=== PATIENT | female | born 1990 | race Caucasian/White ===

== ENCOUNTER 2016-11-07 11:56 | Emergency (ER) | payer OTHER ==
[2016-11-07 12:05] VITALS: BMI 34.9
--- NOTE | 2016-11-07 12:20 | PDOC ---
History of Present Illness - General Chief Complaint: Respiratory Stated Complaint: TROUBLE BREATHING Time Seen by Provider: 11/07/16 12:04 History Source: Patient Exam Limitations: No Limitations - History of Present Illness Initial Comments: 11/07/16 12:07 26y F hx of asthma (no intubations), presents with sob. The patients states she has had nasal congestion, cough, chest congestion for approx 6 days, she went to see her PMD who gave her prescription for prednisone and nebs, which she states has helped slightly. Pt endorses fever to 102.5 this morning, took motrin prior to coming in. pt endorses mild chest tightness. The pt denies any leg swelling, hx of pe/dvt, exogenous hormone use. no recent sick contacts no recent travel Past History - Past Medical History Allergies/Adverse Reactions: Allergies Allergy/AdvReac Type Severity Reaction Status Date / Time peanut Allergy Swelling Verified 11/07/16 12:05 Home Medications: Ambulatory Orders Albuterol Sulfate 0.5% [Ventolin 0.5% -] 1 neb IH DAILY 11/07/16 Mometasone/Formoterol [Dulera 100 Mcg/5 Mcg Inhaler] 2 inh IH BID 11/07/16 Asthma: Yes Suicide Attempt (Hx): No - Surgical History Abdominal Surgery: Yes - Immunization History Td Vaccination: Yes TDAP Vaccination: Yes Immunization Up to Date: Yes - Psycho/Social/Smoking Cessation Hx Anxiety: No Suicidal Ideation: No Smoking Status: No Smoking History: Never smoked Years of Tobacco Use: 0 Have you smoked in the past 12 months: No Number of Cigarettes Smoked Daily: 0 Cigars Per Day: 0 Hx Alcohol Use: No Drug/Substance Use Hx: No Substance Use Type: None Hx Substance Use Treatment: No Review of Systems - Review of Systems Able to Perform ROS?: Yes Comments:: 11/07/16 12:21 Constitutional - no reported Fever, Chills, weakness, HEENT: +nasal congestion no reported vision changes, sore throat Respiratory: + cough, sob, no reported hemoptysis Cardiac: no reported chest pain, palpitations, light headedness, leg swelling Abd/GI: no reported abd pain, nausea, vomiting, blood per rectum, melena, diarrhea : no reported dysuria, frequency, discharge Musculskelatal - no reported back pain, joint swelling skin - no reported bruising, erythema, rash neurological: no reported headache, numbness, focal weakness, tingling, ataxia, weakness hematologic: no reported anemia, easy bruising, easy bleeding *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 - Vital Signs Last Vital Signs Temp Pulse Resp BP Pulse Ox 108 H 24 127/93 100 11/07/16 12:01 11/07/16 12:01 11/07/16 12:01 11/07/16 12:01 - 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 Comments: 11/07/16 12:21 GENERAL: The patient is awake, alert, and fully oriented, anxiouis appearing HEAD: Normocephalic, atraumatic. EYES: extraocular movements intact, sclera anicteric, conjunctiva clear. ENT: Normal voice, Moist mucous membranes. posterior pahrynx mildly erythemaodus with whitish exudates NECK: Normal range of motion, supple LUNGS: n osignificant wheezing appreciate d(pt was already started on neb prior to my arrival) HEART: Regular rate and rhythm, normal S1 and S2 without murmur, rub or gallop. ABDOMEN: Soft, nontender, normoactive bowel sounds. No guarding, no rebound. No CVA tenderness EXTREMITIES: Normal range of motion, no edema. No clubbing or cyanosis. No cords, erythema, or tenderness. NEUROLOGICAL: No facial assymetry, Normal speech, PSYCH: Normal mood, normal affect. SKIN: Warm, Dry, normal turgor, ED Treatment Course - LABORATORY CBC & Chemistry Diagram: 11/07/16 12:09 11/07/16 12:09 - RADIOLOGY Radiology Studies Ordered: Category Date Time Status CHEST X-RAY PORTABLE* [RAD] Stat Radiology 11/07/16 12:05 Ordered Medical Decision Making - Medical Decision Making 11/07/16 12:29 suspect URI exsacerating astham no risk for PE will give duonebs will check cxr will swab for flu 11/07/16 15:25 The patient's blood work was reviewed it is notable for mild leukocytosis with a lymphocytic predominance Chest x-ray is negative flu and then rapid strep are negative I suspect that the patient's shortness of breath is secondary to her URI, on exam the patient is ambulating around the department her lungs are clear. We'll have the patient continue her outpatient treatment of her asthma. Supportive management for her URI and pharyngitis Will have the patient follow-up with primary care doctor on Wednesday for further evaluation Return precautions were discussed I discussed the physical exam findings, ancillary test results and final diagnoses with the patient. I answered all of the patient's questions. The patient was satisfied with the care received and felt comfortable with the discharge plan and treatment plan. The patient will call their primary care physician within 24 hours to arrange follow-up and will return to the Emergency Department with any new, persistent or worsening symptoms. *DC/Admit/Observation/Transfer Diagnosis at time of Disposition: Influenza-like symptoms Acute pharyngitis Qualifiers: Pharyngitis/tonsillitis etiology: other specified organisms Qualified Code(s): J02.8 - Acute pharyngitis due to other specified organisms - Discharge Dispostion Disposition: HOME Condition at time of disposition: Improved Admit: No - Referrals Referrals: Krystian Powers [Primary Care Provider] - - Patient Instructions Printed Discharge Instructions: DI for Pharyngitis/Tonsillopharyngitis -- Adult , DI for Common Cold Additional Instructions: Return to the emergency department immediately with ANY new, persistent or worsening symptoms. Please take Tylenol or motrin for any body aches, sore throat, fevers. Make sure he stay well-hydrated to ease her nasal congestion. You MUST call and follow up with your doctor tomorrow for further evaluation of your symptoms. Results were discussed with you. Please make sure your doctor reviews the results of your emergency evaluation.
[2016-11-07 12:32] LABS: MCH 26.2 pg (25.7-33.7); MCHC 32.1 g/dl (32.0-36.0); MEAN CELL VOLUME 81.8 fl (80-96); MEAN PLT VOLUME 7.8 fl (7.5-11.1); PLATELET COUNT 262 K/MM3 (134-434); RDW 15.6 % (11.6-15.6); WHITE BLOOD COUNT 13.1 K/mm3 (4.0-10.0)
[2016-11-07 13:13] LABS: ALBUMIN 3.5 g/dl (3.4-5.0); ANION GAP 10 (8-16); CALCIUM 8.7 mg/dL (8.5-10.1); CO2 28 mmol/L (21-32); CREATININE 0.9 mg/dL (0.55-1.02); GLUCOSE,RANDOM 109 mg/dL (74-106); SGOT/AST 22 U/L (15-37); SGPT/ALT 53 U/L (12-78)
[2016-11-07 13:15] LABS: ALK PHOS 85 U/L (45-117); BILIRUBIN,TOTAL 0.3 mg/dL (0.2-1.0); TOT PROT 7.9 g/dl (6.4-8.2)
[2016-11-07 13:39] VITALS: TEMP 98.6
[2016-11-07] MEDS ORDERED: KETOROLAC TROMETHAMINE 30 MG/1 ML VIAL IVPUSH ONE (14:37)
[2016-11-07] MEDS ORDERED: DEXAMETHASONE SOD PHOSPHATE 10 MG/1 ML VIAL IVPUSH ONE (14:37)
[2016-11-07 14:49] LABS: PLATELET COMMENT2 NO CLOTTING DETECTED; PLATELET ESTIMATE ADEQUATE (NORMAL)
[2016-11-07 17:41] VITALS: BP 138/72; PULSE 89
== END 2016-11-07 17:42 | disposition home or self-care (01) ==
LOC: JER 11:56
PROC: 3E0333Z Introduction of Anti-inflammatory into Peripheral Vein, Percutaneous Approach (ICD-10-PCS; principal; 2016-11-07)
PROC: 3E0333Z Introduction of Anti-inflammatory into Peripheral Vein, Percutaneous Approach (ICD-10-PCS; 2016-11-07)
DX: J11.1 Influenza due to unidentified influenza virus with other respiratory manifestations (principal)
CPT/HCPCS: 36415; 71010-TC; 80053; 85025; 87070; 87430; 87804; 96374; 96375; 99284-25

== ENCOUNTER → 2016-12-18 | Emergency (ER) | payer OTHER ==
[~2016-12-18] MED LIST: ACETAMINOPHEN 325 MG TABLET (FP) PO ONE; ONDANSETRON *ODT* 4 MG TABLET ONE; ONDANSETRON *ODT* 4 MG TABLET SL ONE; PHENAZOPYRIDINE HCL 100 MG TABLET (FP) PO ONE
[2016-12-18 04:56] VITALS: BP 113/78; PULSE 100; TEMP 97.4; BMI 35.2
[2016-12-18 05:23] LABS: URINE APPEARANCE CLOUDY; URINE BILIRUBIN NEGATIVE (NEGATIVE); URINE COLOR YELLOW; URINE GLUCOSE (UA) NEGATIVE (NEGATIVE); URINE KETONE NEGATIVE (NEGATIVE); URINE NITRITE NEGATIVE (NEGATIVE); URINE UROBILINOGEN NEGATIVE E.U./dl (0.2-1.0)
[2016-12-18 05:25] LABS: URINE BLOOD 3+ (NEGATIVE); URINE LEUK ESTERASE 3+ (NEGATIVE); URINE PROTEIN 2+ (NEGATIVE)
[2016-12-18 05:32] LABS: URINE BACTERIA MODERATE /hpf (NONE SEEN); URINE MUCUS FEW; URINE RBC 1767 /hpf (0-3); URINE WBC 679 /hpf (3-5)
--- NOTE | 2016-12-18 05:46 | PDOC ---
History of Present Illness - General Chief Complaint: Urinary Problem Stated Complaint: URINARY PROBLEM Time Seen by Provider: 12/18/16 04:47 - History of Present Illness Initial Comments: 12/18/16 06:08 CHIEF COMPLAINT: urinary tract infection HISTORY OF PRESENT ILLNESS: 26-year-old female with history of asthma presents to ER with dysuria since yesterday. She states that she has urinary frequency, pain on urination and blood in her urine. Patient states she's been drinking a lot of water with no relief. Patient states she has had this before many years ago but it feels similar to her last urinary tract infection. She denies fever, chills, nausea, vomiting, diarrhea. No recent travel or sick contacts. PAST MEDICAL HISTORY: Denies past medical history FAMILY HISTORY: Denies SOCIAL HISTORY:Denies tobacco, alcohol, illicit drug use. SURGICAL HISTORY: 2 C-sections ALLERGIES: Peanut REVIEW OF SYSTEMS General/Constitutional: Denies fever or chills. Denies weakness, weight change. HEENT: Denies change in vision. Denies ear pain or discharge. Denies sore throat. Cardiovascular: Denies chest pain or shortness of breath. Respiratory: Denies cough, wheezing, or hemoptysis. Gastrointestinal: Denies nausea, vomiting, diarrhea or constipation. Denies rectal bleeding. Genitourinary: Dysuria, frequency, blood in urine. Musculoskeletal: Denies joint or muscle swelling or pain. Denies neck or back pain. Skin and breasts: Denies rash or easy bruising. PHYSICAL EXAM General Appearance: Well-appearing, appropriately dressed. No apparent distress , no intoxication. HEENT: EOMI, PERRLA. No conjunctival pallor. No photophobia, scleral icterus. Respiratory/Chest: Lungs CTAB. Cardiovascular: RRR. S1, S2. Gastrointestinal/Abdominal: Normal bowel sounds. Abdomen soft, non-distended. No tenderness or rebound tenderness. No organomegaly, pulsatile mass, guarding , hernia, hepatomegaly, splenomegaly. Musculoskeletal/Extremities: Normal inspection. FROM of all extremities, normal capillary refill. Pelvis Stable. No CVA tenderness. No tenderness to extremities, pedal edema, swelling, erythema or deformity. Integumentary: Appropriate color, dry, warm. 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 Fully oriented, alert. Appropriate mood/affect. Motor strength 5/5. No appreciable EOM palsy, facial droop or sensory deficit. Past History - Past Medical History Allergies/Adverse Reactions: Allergies Allergy/AdvReac Type Severity Reaction Status Date / Time peanut Allergy Swelling Verified 12/18/16 04:54 Home Medications: Ambulatory Orders Albuterol Sulfate 0.5% [Ventolin 0.5% -] 1 neb IH DAILY 11/07/16 Mometasone/Formoterol [Dulera 100 Mcg/5 Mcg Inhaler] 2 inh IH BID 11/07/16 Nitrofurantoin Monohyd/M-Cryst [Macrobid -] 100 mg PO BID #14 capsule 12/18/16 Phenazopyridine HCl [Pyridium] 200 mg PO TID PRN #12 tablet 12/18/16 Asthma: Yes Suicide Attempt (Hx): No - Surgical History Abdominal Surgery: Yes (C/S X2) - Immunization History Td Vaccination: Yes TDAP Vaccination: Yes Immunization Up to Date: Yes - Psycho/Social/Smoking Cessation Hx Anxiety: No Suicidal Ideation: No Smoking Status: No Smoking History: Never smoked Years of Tobacco Use: 0 Have you smoked in the past 12 months: No Number of Cigarettes Smoked Daily: 0 Cigars Per Day: 0 Information on smoking cessation initiated: No Hx Alcohol Use: No Drug/Substance Use Hx: No Substance Use Type: None Hx Substance Use Treatment: No Abd/GI Specific PMHX - Complaint Specific PMHX Colitis: No Diverticulitis: No Gall Bladder Disease: No GERD: No Hepatitis: No Irritable Bowel Synd (IBS): No Pancreatitis: No GI Ulcer Disease: No *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 - Vital Signs Last Vital Signs Temp Pulse Resp BP Pulse Ox 97.4 F L 100 H 14 113/78 98 12/18/16 04:55 12/18/16 04:55 12/18/16 04:55 12/18/16 04:55 12/18/16 04:55 ED Treatment Course - ADDITIONAL ORDERS Additional order review: Laboratory Results 12/18/16 05:01 Urine Color Yellow Urine Appearance Cloudy Urine pH 6.0 Ur Specific [place] 1.020 Urine Protein 2+ H Urine Glucose (UA) Negative Urine Ketones Negative Urine Blood 3+ H Urine Nitrite Negative Urine Bilirubin Negative Urine Urobilinogen Negative Ur Leukocyte Esterase 3+ H Urine RBC 1767 Urine WBC 679 Ur Epithelial Cells Few Urine Bacteria Moderate Urine Mucus Few Urine HCG, Qual Negative - Medications Given in the ED: ED Medications Discontinued Medications Generic Name Dose Route Start Last Admin Trade Name Freq PRN Reason Stop Dose Admin Acetaminophen 650 mg 12/18/16 05:20 12/18/16 05:26 Tylenol - PO 12/18/16 05:21 650 mg ONCE ONE Administration Phenazopyridine HCl 200 mg 12/18/16 05:20 12/18/16 05:26 Pyridium - PO 12/18/16 05:21 200 mg ONCE ONE Administration Medical Decision Making - Medical Decision Making 12/18/16 06:10 26 yo female with history of asthma presents to ED with dysuria, hematuria, urinary frequency. -UA, UCx -Tylenol 650 mg -Pyridium 200 mg UA - WBC 679 Patient vomiting after taking Tylenol but states "I always throw up with I take tablets instead of capsules." 8 mg Zofran ODT given. -Macrobid 100 mg bid x 7 days -Pyridium 200 mg TID prn dysuria Rxs sent to pharm Advised patient to take medication as prescribed and follow up with PMD next week. Advised patient of signs and symptoms for return to ED. Patient verbalized understanding and agrees to plan. *DC/Admit/Observation/Transfer Diagnosis at time of Disposition: UTI (urinary tract infection) Qualifiers: Urinary tract infection type: site unspecified Hematuria presence: without hematuria Qualified Code(s): N39.0 - Urinary tract infection, site not specified - Discharge Dispostion Admit: No - Prescriptions Prescriptions: Nitrofurantoin Monohyd/M-Cryst [Macrobid -] 100 mg PO BID #14 capsule Phenazopyridine HCl [Pyridium] 200 mg PO TID PRN #12 tablet PRN Reason: Pain - Referrals Referrals: Krystian Powers [Primary Care Provider] - - Patient Instructions Printed Discharge Instructions: DI for Urinary Tract Infection (UTI) Additional Instructions: Please take medications as prescribed. Follow up with your primary care doctor next week. If you experience fever, chills, nausea, vomiting, diarrhea, or any new or worsening symptoms, please return to the ER.
== END | disposition home or self-care (01) ==
LOC: JER 04:38
DX: N39.0 Urinary tract infection, site not specified (principal); R31.9 Hematuria, unspecified; B96.89 Other specified bacterial agents as the cause of diseases classified elsewhere
CPT/HCPCS: 81003; 81015; 84703; 87086; 87186; 99282-25

== ENCOUNTER 2017-02-08 22:07 | Emergency (ER) | payer SELFPAY ==
[2017-02-08 22:41] VITALS: BMI 35.7
--- NOTE | 2017-02-08 22:43 | PDOC ---
History of Present Illness - History of Present Illness Initial Comments: 02/09/17 22:10 The patient is a 26 year old female, with a significant past medical history of asthma, who presents to the emergency department via ems for depression and headache this evening after fighting with her mother. The patient states her mother called 911 because she claimed she wanted to kill herself. As per ems, the patients mother reported the patient had a knife to her own throat when she made the statement about wanting to commit suicide during an argument at home. The patient denies ever holding a knife or having suicide plan. She states she was in the middle of an argument with her mother about a situation with their rabbi and told her mother she would just "jump in the river", but the patient states she did not mean she would do it. 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 The patient states her children and her job are her life and she does not feel like she wants to . She denies chest pain, shortness of breath, and dizziness. She denies fever, chills, nausea, vomit, diarrhea and constipation. She denies dysuria, frequency , urgency and hematuria. Allergies: peanuts Past surgical history: x 2 Social history: denies toxic habits PCP - Dr. Krystian Powers <Qi Avalos - Last Filed: 02/09/17 01:36> <Ruba Chavez - Last Filed: 02/09/17 22:06> - General Chief Complaint: Depression Stated Complaint: EDP Time Seen by Provider: 02/08/17 22:08 Past History <Qi Avalos - Last Filed: 02/09/17 01:36> - Past Medical History Asthma: Yes Suicide Attempt (Hx): No - Surgical History Abdominal Surgery: Yes (C/S X2) - Immunization History Td Vaccination: Yes TDAP Vaccination: Yes Immunization Up to Date: Yes - Psycho/Social/Smoking Cessation Hx Anxiety: No Suicidal Ideation: Yes (thoughts with no plan) Smoking Status: No Smoking History: Never smoked Years of Tobacco Use: 0 Have you smoked in the past 12 months: No Number of Cigarettes Smoked Daily: 0 Cigars Per Day: 0 Information on smoking cessation initiated: No Hx Alcohol Use: No Drug/Substance Use Hx: No Substance Use Type: None Hx Substance Use Treatment: No <Ruba Chavez - Last Filed: 02/09/17 22:06> - Past Medical History Allergies/Adverse Reactions: Allergies Allergy/AdvReac Type Severity Reaction Status Date / Time peanut Allergy Swelling Verified 02/08/17 22:55 Home Medications: Ambulatory Orders Albuterol Sulfate 0.5% [Ventolin 0.5% -] 1 neb IH DAILY 11/07/16 Mometasone/Formoterol [Dulera 100 Mcg/5 Mcg Inhaler] 2 inh IH BID 11/07/16 *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 - Vital Signs Last Vital Signs Temp Pulse Resp BP Pulse Ox 98.9 F 92 H 18 117/76 99 02/08/17 22:08 02/08/17 22:08 02/08/17 22:08 02/08/17 22:08 02/08/17 22:33 <Qi Avalos - Last Filed: 02/09/17 01:36> - Vital Signs Last Vital Signs Temp Pulse Resp BP Pulse Ox 98.9 F 92 H 18 117/76 99 02/08/17 22:08 02/08/17 22:08 02/08/17 22:08 02/08/17 22:08 02/08/17 22:08 <Ruba Chaevz - Last Filed: 02/09/17 22:06> ED Treatment Course - LABORATORY CBC & Chemistry Diagram: 02/08/17 23:16 02/08/17 23:23 - ADDITIONAL ORDERS Additional order review: Laboratory Results 02/09/17 02/08/17 00:05 23:23 Sodium 141 Potassium 4.1 Chloride 104 Carbon Dioxide 28 Anion Gap 9 BUN 17 D Creatinine 0.7 D Creat Clearance w eGFR > 60 Random Glucose 91 Calcium 8.6 Total Bilirubin 0.3 AST 16 D ALT 17 D Alkaline Phosphatase 70 Total Protein 6.9 Albumin 3.3 L Urine HCG, Qual Negative 02/08/17 23:16 RBC 4.34 MCV 83.7 MCHC 32.7 RDW 15.2 MPV 7.9 Neutrophils % 49.9 D Lymphocytes % 39.6 D Monocytes % 8.1 D Eosinophils % 1.4 Basophils % 1.0 - Medications Given in the ED: ED Medications Discontinued Medications Generic Name Dose Route Start Last Admin Trade Name Manju PRN Reason Stop Dose Admin Acetaminophen 650 mg 02/09/17 00:26 02/09/17 00:54 Tylenol - PO 02/09/17 00:27 650 mg ONCE ONE Administration <MaureenseraQi westbrook - Last Filed: 02/09/17 01:36> - LABORATORY CBC & Chemistry Diagram: 02/08/17 23:16 02/08/17 23:23 <Ruba Chavez - Last Filed: 02/09/17 22:06> Medical Decision Making - Medical Decision Making 02/08/17 23:53 26 yo female ROSALINDA from home because her mother called and said the pt was threatening to harm herself -the pt states she and her mother have been arguing and she threatened to harm herself but she didnt really mean to hurt herself -she does not have a plan to harm either herself or others.she said she would never do anything that would jeopardize the lives of her children or her bring them up. She had a verbal disagreement with her rabbi about bringing something to the [employer] dinner. She was upset when her mother sided with the rabbi. She had a verbal argument her mother with whom she lives. 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 She has 2 children .she feels her mother is not very supportive of her daily stressors. After the verbal disagreement w her mother during which she told her mother she was really angry at her and she was going to "jump off a bridge" because her mother was driving her crazy - she left her home to go and pickup her 2 children. Upon arriving back at her mother's house,she saw the police and ambulance there. She said she didn't know what was going on . When police approached her car she didn't know what to think so she calmly locker her car door and raised up her hands.. She said the police were very kind and told her they were taking her so "you can get some help" . She was taken aback by the whole situation pt is axox3,no gross focal deficits -plan- cbc,comp,drug screen Negative drug screen,unremarkable labs,negative -no suicidal or homocidal ideology 02/09/17 00:53 02/09/17 18:49 02/09/17 21:59 <Ruba Chavez - Last Filed: 02/09/17 22:06> *DC/Admit/Observation/Transfer <RobbieQi - Last Filed: 02/09/17 01:36> <Ruba Chavez - Last Filed: 02/09/17 22:06> Diagnosis at time of Disposition: Situational anxiety - Discharge Dispostion Disposition: HOME Condition at time of disposition: Stable - Referrals Referrals: Krystian Powers [Primary Care Provider] - - Patient Instructions Printed Discharge Instructions: DI for Anxiety -- Adult, DI for Depression -- Adult Additional Instructions: please follow up with your regular physician [facility] has outpatient treatment for stress and you are encouraged to contact them Return if you ever have any worsening symptoms
[2017-02-09 00:13] LABS: EOSINOPHIL 1.4 % (0-4.5); MCH 27.4 pg (25.7-33.7); MCHC 32.7 g/dl (32.0-36.0); MEAN CELL VOLUME 83.7 fl (80-96); MEAN PLT VOLUME 7.9 fl (7.5-11.1); NEUTROPHILS 49.9 % (42.8-82.8); PLATELET COUNT 284 K/MM3 (134-434); RDW 15.2 % (11.6-15.6); WHITE BLOOD COUNT 6.6 K/mm3 (4.0-10.0)
[2017-02-09] MEDS ORDERED: ACETAMINOPHEN 325 MG TABLET (FP) PO ONE (00:26)
[2017-02-09 00:27] LABS: ALBUMIN 3.3 g/dl (3.4-5.0); ALK PHOS 70 U/L (45-117); ANION GAP 9 (8-16); BILIRUBIN,TOTAL 0.3 mg/dL (0.2-1.0); CALCIUM 8.6 mg/dL (8.5-10.1); CO2 28 mmol/L (21-32); CREATININE 0.7 mg/dL (0.55-1.02); GLUCOSE,RANDOM 91 mg/dL (74-106); SGOT/AST 16 U/L (15-37); SGPT/ALT 17 U/L (12-78); TOT PROT 6.9 g/dl (6.4-8.2)
[2017-02-09 01:36] LABS: URINE MARIJUANA THC NEGATIVE ng/ml (CUTOFF=50)
[2017-02-09 03:45] VITALS: BP 119/78; PULSE 89; TEMP 98.7
== END 2017-02-09 02:02 | disposition home or self-care (01) ==
LOC: JER 22:07
DX: F43.20 Adjustment disorder, unspecified (principal)
CPT/HCPCS: 36415; 80053; 80307; 84703; 85025; 99283-25

== ENCOUNTER 2017-04-05 09:43 | Emergency (ER) | payer OTHER ==
[2017-04-05] MEDS ORDERED: SODIUM CHLORIDE 2,000 ML IV STA (09:59)
[2017-04-05] MEDS ORDERED: ONDANSETRON 4 MG/2 ML VIAL IVPUSH ONE (09:59)
--- NOTE | 2017-04-05 09:59 | PDOC ---
History of Present Illness - General History Source: Patient, Old Records Exam Limitations: No Limitations <Libby Winter - Last Filed: 04/05/17 13:13> - History of Present Illness Initial Comments: 04/05/17 10:52 Patient is a 26 year old female (8 weeks) with no significant medical hx who is presenting to the ED via EMS after a syncopal episode today. Patient states she wasnt feeling well since she woke up early this morning with nausea and vertiginous dizziness. She reports trying to eat some crackers and soda to help her nausea which provided little relief. The patient then began having palpitations and shortness of breath, and reportedly syncopized shortly after. Patient was at work during the event and coworkers called EMS. The patient also endorses some suprapubic pain, lower back pain and frequency with urination. Patient has her first [employer] appointment tomorrow. Denies any fever, chills, chest pain, dysuria, hematuria, vomiting, or diarrhea. LNMP: 02/16/17, <Fanny Otoole - Last Filed: 04/05/17 13:20> - General Chief Complaint: Syncope/Near Syncope Stated Complaint: Syncope/Near Syncope Time Seen by Provider: 04/05/17 09:50 Past History - Past Medical History Asthma: Yes Suicide Attempt (Hx): No - Surgical History Abdominal Surgery: Yes (C/S X2) - Immunization History Td Vaccination: Yes TDAP Vaccination: Yes Immunization Up to Date: Yes - Psycho/Social/Smoking Cessation Hx Anxiety: No Suicidal Ideation: Yes (thoughts with no plan) Smoking Status: No Smoking History: Never smoked Years of Tobacco Use: 0 Have you smoked in the past 12 months: No Number of Cigarettes Smoked Daily: 0 Cigars Per Day: 0 Hx Alcohol Use: No Drug/Substance Use Hx: No Substance Use Type: None Hx Substance Use Treatment: No <Libby Winter - Last Filed: 04/05/17 13:13> <Fanny Otoole - Last Filed: 04/05/17 13:20> - Past Medical History Allergies/Adverse Reactions: Allergies Allergy/AdvReac Type Severity Reaction Status Date / Time peanut Allergy Swelling Verified 04/05/17 10:01 Home Medications: Ambulatory Orders Albuterol Sulfate 0.5% [Ventolin 0.5% -] 1 neb IH DAILY 11/07/16 Mometasone/Formoterol [Dulera 100 Mcg/5 Mcg Inhaler] 2 inh IH BID 11/07/16 Cephalexin [Keflex] 500 mg PO BID #20 capsule 04/05/17 Review of Systems - Review of Systems Comments:: 04/05/17 10:52 GENERAL/CONSTITUTIONAL: No fever or chills. No weakness. HEAD, EYES, EARS, NOSE AND THROAT: No change in vision. No ear pain or discharge. No sore throat. CARDIOVASCULAR: Palpitations, shortness of breath. No chest pain. RESPIRATORY: No cough, wheezing, or hemoptysis. GASTROINTESTINAL: Suprapubic pain, nausea. No vomiting, diarrhea or constipation. GENITOURINARY: Frequency. No dysuria, or change in urination. MUSCULOSKELETAL: Lower back pain. No joint or muscle swelling or pain. No neck pain. ENDOCRINE: No increased thirst. No abnormal weight change. SKIN: No rash NEUROLOGIC: Dizziness, loss of consciousness. No headache or change in strength/ sensation. <Fanny Otoole - Last Filed: 04/05/17 13:20> *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 - Vital Signs Last Vital Signs Temp Pulse Resp BP Pulse Ox 98.8 F 55 L 18 97/81 100 04/05/17 09:55 04/05/17 09:55 04/05/17 09:55 04/05/17 09:55 04/05/17 09:55 - 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 Comments: 04/05/17 10:54 GENERAL: Awake, alert, and fully oriented, in no acute distress HEAD: No signs of trauma EYES: PERRLA, EOMI, sclera anicteric, conjunctiva clear ENT: Auricles normal inspection, hearing grossly normal, nares patent, oropharynx clear without exudates. Moist mucosa NECK: Normal ROM, supple, no lymphadenopathy, JVD, or masses LUNGS: Breath sounds equal, clear to auscultation bilaterally. No wheezes, and no crackles HEART: Regular rate and rhythm, normal S1 and S2, no murmurs, rubs or gallops ABDOMEN: Obese abdomen. Soft, nontender, normoactive bowel sounds. No guarding , no rebound. No masses EXTREMITIES: Normal range of motion, no edema. No clubbing or cyanosis. No cords, erythema, or tenderness NEUROLOGICAL: Cranial nerves II through XII grossly intact. Normal speech, normal gait SKIN: Warm, Dry, normal turgor, no rashes or lesions noted. HEMATOLOGIC/LYMPHATIC: No anemia, easy bleeding, or history of blood clots. ALLERGIC/IMMUNOLOGIC: No hives or skin allergy. <Fanny Otoole - Last Filed: 04/05/17 13:20> ED Treatment Course - LABORATORY CBC & Chemistry Diagram: 04/05/17 10:25 04/05/17 10:25 <Libby Winter - Last Filed: 04/05/17 13:13> - LABORATORY CBC & Chemistry Diagram: 04/05/17 10:25 04/05/17 10:25 - RADIOLOGY Radiograph Interpretation: 04/05/17 13:19 Transvaginal US Impression: Single live intrauterine with estimated gestational age of 8 weeks 5 days. heart activity was documented. Small anterior myometrial fibroid. Small right ovary simple cyst/dominant follicle measuring 1.5 cm. Left ovary seen on the transvesical images. Reported By: Griselda Rivera MD - Medications Given in the ED: ED Medications Discontinued Medications Generic Name Dose Route Start Last Admin Trade Name Freq PRN Reason Stop Dose Admin Ondansetron HCl 4 mg 04/05/17 09:59 04/05/17 10:10 Zofran Injection IVPUSH 04/05/17 10:00 4 mg ONCE ONE Administration <Fanny Otoole - Last Filed: 04/05/17 13:20> Medical Decision Making - Medical Decision Making 04/05/17 10:37 26 y/o female (approx 8 weeks) presents to the ED with c/o nausea, dizziness and a syncopal episode this morning. DDx includes but is not limited to: dehydration, electrolyte abnormality, postural hypotension, vaso-vagal response, ectopic , UTI, cardiac arrhythmia. Plan: 1. EKG 2. Labs 3. Urine analysis 4. Pelvic ultrasound 5. Observe and re-evaluate 04/05/17 13:17 Addendum: The labs were reviewed and are noted in the EMR. Ultrasound shows IUP measuring 8 weeks, 4 days with a FHR of 158. Urine shows +LE. Plan is to discharge home with Rx for Keflex. F/u with OB and return to the ED if Sx persist, worsen or new Sx arise. <Libby Winter - Last Filed: 04/05/17 13:13> *DC/Admit/Observation/Transfer - Discharge Dispostion Admit: No - Attestations Physician Attestion: 04/05/17 10:39 I, Dr. Libby Winter, attest that the scribes documentation that appears above has been prepared under my direction and personally reviewed by me in its entirety. I confirmed that the note above accurately reflects all work, treatment, procedures, and medical decision-making performed by me. <Libby Winter - Last Filed: 04/05/17 13:13> - Attestations Scribe Attestion: 04/05/17 10:55 Documentation prepared by Fanny Otoole, acting as special forces medical sergeant for Libby Winter MD. <Fanny Otoole - Last Filed: 04/05/17 13:20> Diagnosis at time of Disposition: Syncope and collapse, , incidental, UTI (urinary tract infection) - Discharge Dispostion Disposition: HOME - Prescriptions Prescriptions: Cephalexin [Keflex] 500 mg PO BID #20 capsule - Referrals Referrals: Krystian Powers [Primary Care Provider] - - Patient Instructions Printed Discharge Instructions: DI for Syncope in Adults (Fainting) Additional Instructions: You have a urinary tract infection. You are being prescribed Keflex 500mg-one tablet twice daily for the next 10 days. Please follow-up with your educational advisor within the next 3 days and make sure that you keep hydrated (drink lots of water). Return to the ED if your symptoms -persist, worsen or new symptoms arise.
[2017-04-05 10:01] VITALS: BP 97/81; PULSE 55; TEMP 98.8; BMI 36.6
[2017-04-05] MEDS ORDERED: ONDANSETRON 4 MG/2 ML VIAL ONE (10:10)
[2017-04-05 10:45] LABS: BASOPHIL 0.8 % (0-2.0); EOSINOPHIL 0.9 % (0-4.5); MCH 27.1 pg (25.7-33.7); MCHC 32.8 g/dl (32.0-36.0); MEAN CELL VOLUME 82.7 fl (80-96); MEAN PLT VOLUME 7.9 fl (7.5-11.1); NEUTROPHILS 48.6 % (42.8-82.8); PLATELET COUNT 272 K/MM3 (134-434); RDW 14.6 % (11.6-15.6); WHITE BLOOD COUNT 5.6 K/mm3 (4.0-10.0)
[2017-04-05 10:56] LABS: ANION GAP 6 (8-16); BILIRUBIN,TOTAL 0.4 mg/dL (0.2-1.0); CALCIUM 8.3 mg/dL (8.5-10.1); CO2 27 mmol/L (21-32); CREATININE 0.5 mg/dL (0.55-1.02); GLUCOSE,RANDOM 75 mg/dL (74-106); SGOT/AST 16 U/L (15-37); SGPT/ALT 16 U/L (12-78); TOT PROT 6.6 g/dl (6.4-8.2)
[2017-04-05 10:57] LABS: URINE APPEARANCE CLEAR; URINE BILIRUBIN NEGATIVE (NEGATIVE); URINE BLOOD NEGATIVE (NEGATIVE); URINE COLOR STRAW; URINE GLUCOSE (UA) NEGATIVE (NEGATIVE); URINE KETONE NEGATIVE (NEGATIVE); URINE NITRITE NEGATIVE (NEGATIVE); URINE UROBILINOGEN NEGATIVE E.U./dl (0.2-1.0)
[2017-04-05 10:59] LABS: ACETONE SERUM NEGATIVE (NEGATIVE); URINE LEUK ESTERASE TRACE (NEGATIVE); URINE PROTEIN 1+ (NEGATIVE)
[2017-04-05 11:01] LABS: URINE MUCUS RARE; URINE RBC <1 /hpf (0-3); URINE WBC 1 /hpf (3-5)
[2017-04-05 11:12] LABS: ALK PHOS 48 U/L (45-117); TROPONIN I < 0.02 ng/ml (0.00-0.05)
[2017-04-05] MEDS ORDERED: CEPHALEXIN MONOHYDRATE 500 MG CAPSULE (UD) PO ONE (12:48)
[2017-04-05] MEDS ORDERED: CEPHALEXIN MONOHYDRATE 250 MG CAPSULE (FP) ONE (14:03)
--- NOTE | 2017-04-06 10:53 | EKG ---
Test Reason : Blood Pressure : / mmHG Vent. Rate : 076 BPM Atrial Rate : 076 BPM P-R Int : 154 ms QRS Dur : 082 ms QT Int : 398 ms P-R-T Axes : 048 035 023 degrees QTc Int : 447 ms NORMAL SINUS RHYTHM NORMAL ECG WHEN COMPARED WITH ECG OF 15-NOV-2015 18:14, NO SIGNIFICANT CHANGE WAS FOUND Confirmed by DARRELL BEST MD ([id number]) on 04/06/2017 10:53:03 AM Referred By: Confirmed By:DARRELL BEST MD
== END 2017-04-05 14:24 | disposition home or self-care (01) ==
LOC: JER 09:43
PROC: 3E0337Z Introduction of Electrolytic and Water Balance Substance into Peripheral Vein, Percutaneous Approach (ICD-10-PCS; principal; 2017-04-05)
DX: O26.891 Other specified pregnancy related conditions, first trimester (principal); R55 Syncope and collapse; N39.0 Urinary tract infection, site not specified; Z3A.08 8 weeks gestation of pregnancy; J45.909 Unspecified asthma, uncomplicated
CPT/HCPCS: 36415; 76817-TC; 80053; 81003; 81015; 82009; 82550; 83690; 84484; 84702; 85025; 87086; 93005; 93010; 96360; 99283-25

== ENCOUNTER 2017-06-26 22:43 | Emergency (ER) | payer OTHER ==
[2017-06-26 22:52] VITALS: PULSE 84; BMI 36.8
--- NOTE | 2017-06-26 23:05 | PDOC ---
History of Present Illness - General Chief Complaint: Urinary Problem Stated Complaint: 20 WEEKS PREG - PAINFUL UNINATION Time Seen by Provider: 06/26/17 22:51 - History of Present Illness Initial Comments: 06/26/17 23:33 Ms. Grant is a 26 year old female with a significant past medical history of previous visit for uti for which she did not fill her prescription who presents to the emergency department with continued pain on urination and significant itching. Past History - Past Medical History Allergies/Adverse Reactions: Allergies Allergy/AdvReac Type Severity Reaction Status Date / Time peanut Allergy Swelling Verified 06/26/17 22:52 Home Medications: Ambulatory Orders Albuterol Sulfate 0.5% [Ventolin 0.5% -] 1 neb IH DAILY 11/07/16 Nitrofurantoin Monohyd/M-Cryst [Macrobid -] 100 mg PO BID #20 capsule 06/26/17 Asthma: Yes Suicide Attempt (Hx): No - Surgical History Abdominal Surgery: Yes (C/S X2) - Immunization History Td Vaccination: Yes TDAP Vaccination: Yes Immunization Up to Date: Yes - Psycho/Social/Smoking Cessation Hx Anxiety: No Suicidal Ideation: Yes (thoughts with no plan) Smoking Status: No Smoking History: Never smoked Years of Tobacco Use: 0 Have you smoked in the past 12 months: No Number of Cigarettes Smoked Daily: 0 Cigars Per Day: 0 Hx Alcohol Use: No Drug/Substance Use Hx: No Substance Use Type: None Hx Substance Use Treatment: No Review of Systems - Review of Systems Comments:: 06/26/17 23:44 GENERAL/CONSTITUTIONAL: No fever or chills. No weakness. HEAD, EYES, EARS, NOSE AND THROAT: No change in vision. No ear pain or discharge. No sore throat. CARDIOVASCULAR: No chest pain or shortness of breath RESPIRATORY: No cough, wheezing, or hemoptysis. GASTROINTESTINAL: No nausea, vomiting, diarrhea or constipation. GENITOURINARY: No dysuria, frequency, or change in urination. MUSCULOSKELETAL: No joint or muscle swelling or pain. No neck or back pain. SKIN: No rash NEUROLOGIC: No headache, vertigo, loss of consciousness, or change in strength/ sensation. ENDOCRINE: No increased thirst. No abnormal weight change HEMATOLOGIC/LYMPHATIC: No anemia, easy bleeding, or history of blood clots. ALLERGIC/IMMUNOLOGIC: No hives or skin allergy. *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 - 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 Comments: 06/26/17 23:44 GENERAL: Awake, alert, and fully oriented, in no acute distress HEAD: No signs of trauma, normocephalic, atraumatic EYES: PERRLA, EOMI, sclera anicteric, conjunctiva clear ENT: Auricles normal inspection, hearing grossly normal, nares patent, oropharynx clear without exudates. Moist mucosa NECK: Normal ROM, supple, no lymphadenopathy, JVD, or masses LUNGS: No distress, speaks full sentences, clear to auscultation bilaterally HEART: Regular rate and rhythm, normal S1 and S2, no murmurs, rubs or gallops, peripheral pulses normal and equal bilaterally. ABDOMEN: Soft, nontender, normoactive bowel sounds. No guarding, no rebound. No masses EXTREMITIES: Normal inspection, Normal range of motion, no edema. No clubbing or cyanosis. NEUROLOGICAL: Cranial nerves II through XII grossly intact. Normal speech, normal gait, no focal sensorimotor deficits SKIN: Warm, Dry, normal turgor, no rashes or lesions noted. Medical Decision Making - Medical Decision Making 06/26/17 23:44 Patient re-presented for UTI evaluation in addition to intense itching. UTI confirmed via UA with 3+ Leukocyte Esterase. Prescription for macrobi sent to patient's pharmacy, patient transferred to OB for further evaluation. *DC/Admit/Observation/Transfer Diagnosis at time of Disposition: UTI (urinary tract infection) Qualifiers: Urinary tract infection type: site unspecified Hematuria presence: with hematuria Qualified Code(s): N39.0 - Urinary tract infection, site not specified ; R31.9 - Hematuria, unspecified
[2017-06-26 23:28] LABS: URINE APPEARANCE CLEAR; URINE BILIRUBIN NEGATIVE (NEGATIVE); URINE BLOOD NEGATIVE (NEGATIVE); URINE COLOR LTYELLOW; URINE GLUCOSE (UA) NEGATIVE (NEGATIVE); URINE KETONE NEGATIVE (NEGATIVE); URINE NITRITE NEGATIVE (NEGATIVE); URINE UROBILINOGEN NEGATIVE mg/dL (0.2-1.0)
[2017-06-26 23:32] LABS: URINE LEUK ESTERASE 3+ (NEGATIVE); URINE PROTEIN 2+ (NEGATIVE)
[2017-06-26 23:37] LABS: URINE RBC 2 /hpf (0-3); URINE WBC 2 /hpf (3-5)
--- NOTE | 2017-06-26 23:40 | PDOC ---
Attending Attestation - Resident Resident Name: Eric Resendiz - HPI HPI: 06/26/17 23:35 pt presents to the ED complaining of vaginal itching and dysuria. Denies nausea , vomiting or fever. Complains of abdominal pressure but denies abdominal pain or vaginal bleeding. 20 weeks by dates. - Physicial Exam PE: 06/26/17 23:37 Agree with resident's exam. Patient is well appearing and in no acute distress. - Medical Decision Making 06/26/17 23:40 Pt presents to the ED complaining of urinary burning and vaginal itching. Denies fever, nausea and vomiting or abdominal pain. Yeast infection vs UTI. UA is positive for UTI. Will rx with macrobid and send to L and D for evaluation. Pelvic exam deferred to L and [facility].
[2017-06-27 00:47] VITALS: BP 108/68; TEMP 98.5
[2017-06-27] MEDS ORDERED: NITROFURANTOIN MACROCRYSTAL 50 MG CAPSULE (FP) ONE (00:51)
== END 2017-06-27 00:40 | disposition home or self-care (01) ==
LOC: JER 22:43
DX: O23.42 Unspecified infection of urinary tract in pregnancy, second trimester (principal); Z3A.20 20 weeks gestation of pregnancy
CPT/HCPCS: 81003; 81015; 87086; 99281-25

== ENCOUNTER 2017-07-17 20:29 | Emergency (ER) | payer OTHER ==
[2017-07-17 20:53] VITALS: PULSE 87; BMI 37.4
--- NOTE | 2017-07-17 21:05 | PDOC ---
History of Present Illness <Sharlene Knutson - Last Filed: 07/17/17 22:16> - General History Source: Patient, Old Records Exam Limitations: No Limitations - History of Present Illness Initial Comments: 07/17/17 21:50 The patient is a 26 year old female () with a past medical history of previous visit for UTI who presents to the emergency department with a urinary problem. The patient has recently finished a cycle of antibiotics secondary to her suspected UTI from her previous visit on 06/26/17. The patient reports persistent vaginal itching and burning worsening since taking antibiotics. She denies any vomiting. <George Andrews - Last Filed: 07/17/17 22:50> - General Chief Complaint: Urinary Problem Stated Complaint: URINARY PROBLEM/BURNING 22WEEKS Time Seen by Provider: 07/17/17 21:05 Past History - Past Medical History Asthma: Yes - Surgical History Abdominal Surgery: Yes (C/S X2) - Immunization History Td Vaccination: Yes TDAP Vaccination: Yes Immunization Up to Date: Yes - Suicide/Smoking/Psychosocial Hx Smoking Status: No Smoking History: Never smoked Years of Tobacco Use: 0 Have you smoked in the past 12 months: No Number of Cigarettes Smoked Daily: 0 Cigars Per Day: 0 Hx Alcohol Use: No Drug/Substance Use Hx: No Substance Use Type: None Hx Substance Use Treatment: No <Sharlene Knutson - Last Filed: 07/17/17 22:16> <George Andrews - Last Filed: 07/17/17 22:50> - Past Medical History Allergies/Adverse Reactions: Allergies Allergy/AdvReac Type Severity Reaction Status Date / Time peanut Allergy Swelling Verified 07/17/17 20:52 Home Medications: Ambulatory Orders Clotrimazole [Enqv-Ztfhuprb-7] 45 gm VG HS #1 cream.appl 07/17/17 Review of Systems - Review of Systems Able to Perform ROS?: Yes Comments:: 07/17/17 21:50 GENERAL/CONSTITUTIONAL: No fever or chills. No weakness. HEAD, EYES, EARS, NOSE AND THROAT: No change in vision. No ear pain or discharge. No sore throat. GASTROINTESTINAL: No nausea, vomiting, diarrhea or constipation. GENITOURINARY: (+) Vaginal burning and itching. CARDIOVASCULAR: No chest pain or shortness of breath. RESPIRATORY: No cough, wheezing, or hemoptysis. MUSCULOSKELETAL: No joint or muscle swelling or pain. No neck or back pain. SKIN: No rash NEUROLOGIC: No headache, vertigo, loss of consciousness, or change in strength/ sensation. ENDOCRINE: No increased thirst. No abnormal weight change. HEMATOLOGIC/LYMPHATIC: No anemia, easy bleeding, or history of blood clots. ALLERGIC/IMMUNOLOGIC: No hives or skin allergy. <George Andrews - Last Filed: 07/17/17 22:50> *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 - Vital Signs Last Vital Signs Temp Pulse Resp BP Pulse Ox 98.1 F 87 18 112/86 99 07/17/17 20:49 07/17/17 20:49 07/17/17 20:49 07/17/17 20:49 07/17/17 20:49 <Sharlene Knutson - Last Filed: 07/17/17 22:16> - Vital Signs Last Vital Signs Temp Pulse Resp BP Pulse Ox 98.1 F 87 18 112/86 99 07/17/17 20:49 07/17/17 20:49 07/17/17 20:49 07/17/17 20:49 07/17/17 20:49 - 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 Comments: 07/17/17 21:50 GENERAL: Awake, alert, and fully oriented, in no acute distress HEAD: No signs of trauma EYES: PERRLA, EOMI, sclera anicteric, conjunctiva clear ENT: Auricles normal inspection, hearing grossly normal, nares patent, oropharynx clear without exudates. Moist mucosa NECK: Normal ROM, supple, no lymphadenopathy, JVD, or masses LUNGS: Breath sounds equal, clear to auscultation bilaterally. No wheezes, and no crackles HEART: Regular rate and rhythm, normal S1 and S2, no murmurs, rubs or gallops ABDOMEN: (+) Soft, Mild suprapubic tenderness, normoactive bowel sounds. No guarding, no rebound. No masses : (+) No external lesions, scant cottage cheese like discharge in vaginal vault with erythema in the vaginal vault EXTREMITIES: Normal range of motion, no edema. No clubbing or cyanosis. No cords, erythema, or tenderness NEUROLOGICAL: Cranial nerves II through XII grossly intact. Normal speech, normal gait SKIN: Warm, Dry, normal turgor, no rashes or lesions noted. <George Andrews - Last Filed: 07/17/17 22:50> Medical Decision Making - Medical Decision Making 07/17/17 22:49 22 wga presents with symptoms consistent with yeast infection. Will treat with Clotrimazole. Transfer to labor and delivery for monitoring as per policy <George Andrews - Last Filed: 07/17/17 22:50> *DC/Admit/Observation/Transfer - Discharge Dispostion Admit: No <Sharlene Knutson - Last Filed: 07/17/17 22:16> - Attestations Scribe Attestion: 07/17/17 21:51 Documentation prepared by George Andrews, acting as lead medical technologist for Sharlene Knutson MD. <George Andrews - Last Filed: 07/17/17 22:50> Diagnosis at time of Disposition: Vaginal candidiasis - Discharge Dispostion Disposition: HOME Condition at time of disposition: Stable - Prescriptions Prescriptions: Clotrimazole [Ftvs-Snxmhnfq-2] 45 gm VG HS #1 cream.appl - Referrals Referrals: Krystian Powers [Primary Care Provider] - - Patient Instructions Printed Discharge Instructions: DI for Vaginal Yeast Infection
[2017-07-17 22:12] LABS: URINE APPEARANCE SLCLOUDY; URINE BILIRUBIN NEGATIVE (NEGATIVE); URINE BLOOD 1+ (NEGATIVE); URINE COLOR YELLOW; URINE GLUCOSE (UA) NEGATIVE (NEGATIVE); URINE KETONE NEGATIVE (NEGATIVE); URINE NITRITE NEGATIVE (NEGATIVE); URINE UROBILINOGEN NEGATIVE mg/dL (0.2-1.0)
[2017-07-17 22:20] LABS: URINE LEUK ESTERASE 3+ (NEGATIVE); URINE PROTEIN 2+ (NEGATIVE)
[2017-07-17 22:22] LABS: GRANULAR CASTS 1 /lpf; URINE MUCUS RARE; URINE RBC 24 /hpf (0-3); URINE WBC 4 /hpf (3-5)
[2017-07-17 23:34] VITALS: BP 103/57; TEMP 97.8
== END 2017-07-17 23:20 | disposition home or self-care (01) ==
LOC: JER 20:29
DX: O98.812 Other maternal infectious and parasitic diseases complicating pregnancy, second trimester (principal); B37.3 Candidiasis of vulva and vagina; Z3A.22 22 weeks gestation of pregnancy
CPT/HCPCS: 36415; 81003; 81015; 87491; 87591; 99282-25

== ENCOUNTER 2017-11-10 06:15 | Inpatient (IN) | payer OTHER ==
[2017-11-10] MEDS ORDERED: CITRIC ACID/SODIUM CITRATE 30 ML UNIT-DOSE CUP PO ONE (06:42)
[2017-11-10] MEDS ORDERED: ELECTROLYTE-148 SOLN 500 ML IV ONE (06:42)
[2017-11-10] MEDS ORDERED: ELECTROLYTE-148 SOLN 1,000 ML IV SCH (07:15)
[2017-11-10 07:40] VITALS: BMI 41.8
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
[2017-11-10] MEDS ORDERED: morphine SULFATE/Preservative Free 0.5 MG/ML (1cc Syringe) ONE (08:14)
[2017-11-10] MEDS ORDERED: SUCCINYLCHOLINE CHLORIDE 200 MG/10 ML VIAL ONE (08:15)
[2017-11-10] MEDS ORDERED: morphine SULFATE/Preservative Free 0.5 MG/ML (1cc Syringe) SPIN ONE (08:30)
[2017-11-10] MEDS ORDERED: ePHEDrine SULFATE 50 MG/1 ML AMPULE ONE (08:30)
--- NOTE | 2017-11-10 09:39 | OP ---
Operative Note - Note: Operative Date: 11/10/17 Pre-Operative Diagnosis: 39.2/7 weeks, previous c/sx2 , obesity Operation: Repeat LFTC/Section Findings: 9.43 AM, baby boy, ROT, 9/9 , wt ,7'6', ht 19 " Both tubes & ovaries normal ant intramural 2cm fibroid above incision in body of uterus . Dr bo present in OR 2 gm iv ancef intra op given prior to incision Post-Operative Diagnosis: Other (small ant intramural fibroid) Surgeon: Ruby Taylor Head Of Human Resources: Bernabe Swan Anesthesiologist/HOME ECONOMICS EXTENSION WORKER: Daja Kohler MD Anesthesia: Spinal Specimens Removed: placenta. cord blood Estimated Blood Loss (mls): 600 Drains, Volume Out (mls): 150 (agrawal, kanchan color ) Operative Report Dictated: Yes
[2017-11-10] MEDS ORDERED: METHYLERGONOVINE MALEATE 0.2 MG/1 ML AMP IM PRN (09:46)
[2017-11-10] MEDS ORDERED: ACETAMINOPHEN INJECTION 100 ML IVPB ONE ×2 (09:47→15:50)
[2017-11-10] MEDS ORDERED: ALBUTEROL SO4 18 GM HFA INHALER IH PRN (09:52)
[2017-11-10] MEDS ORDERED: OXYTOCIN 20 UNITS in 0.9% NS 20 UNIT/1,000 ML INFUS.BAG IV SCH (10:00)
[2017-11-10] MEDS: ACETAMINOPHEN 1000 MG/100 ML VIAL (NON FORMULARY) IVPB PRN ×2 (10:11→20:26)
[2017-11-10] MEDS ORDERED: ONDANSETRON 4 MG/2 ML VIAL IVPUSH PRN (10:11)
[2017-11-10] MEDS ORDERED: ACETAMINOPHEN 1000 MG/100 ML VIAL (NON FORMULARY) IVPB ONE (10:13)
--- NOTE | 2017-11-10 11:14 | OP ---
DATE OF OPERATION: 11/10/2017 PREOPERATIVE DIAGNOSIS: A 39.2-weeks, previous section x2, morbid obesity, and anemia. POSTOPERATIVE DIAGNOSIS: A 39.2-weeks, previous section x2, morbid obesity, anemia, and a small intramural anterior fibroid. SURGEON: Ruby Taylor MD WAX ENGRAVER SURGEON: BLANCA Morton ANESTHESIOLOGIST: Daja Kohler MD ANESTHESIA: Spinal. FINDINGS: This is a 27-year-old 3 para 2-0-0-2 with a previous C- section x2, not in labor, at 39.2 weeks gestation, who requested repeat . PROCEDURE: Abdomen was shaved, prepped. Hoover catheter was placed. Patient was taken to the operating room table. Spinal anesthesia was given. She was placed in supine position. Abdomen was painted and draped in the usual manner. A Pfannenstiel incision was made through previous scar. The skin and subcutaneous tissue were entered. Anterior rectus sheath was incised transversely. Bleeding points were clamped and cauterized. The rectus muscle was , and parietal peritoneum was opened vertically. Lower flap of the peritoneum was identified, and it was incised transversely. Lower uterine segment was incised transversely, and then, amniotic fluid was clear. Baby was delivered at 8:43 a.m. from ROT position. was 9, 9, baby's weight was 7 pounds and 6 ounces, and Dr. Foss of Neonatology was present in the room. Cord was clamped, cut. Cord blood was collected, and then, placenta was removed completely with the membranes. Uterine cavity was cleaned. Then, the uterine incision was closed in 2 layers. The first layer was a continuous locking with a Biosyn 0 suture, second layer was a continuous intermittently locking with a Biosyn 0 suture. Hemostasis was verified . Then, the bladder peritoneum was also closed with Biosyn 0 suture. Both tubes and ovaries were normal. Uterus was placed back into the peritoneal cavity. Irrigation was done. Sponge, instrument, and needle counts were correct. Then, closure of the abdomen was done. The parietal peritoneum was closed with a Vicryl 0 suture. Muscles were approximated together with a Vicryl 0 interrupted sutures. Hemostasis was verified in subcutaneous tissue and also underneath the rectus sheath flaps. Then, the rectus sheath was closed with a Vicryl 0 suture. Continuous sutures were taken. Then, subcutaneous tissue was approximated with interrupted suture with Biosyn 0. Then, the skin was approximated with ethel. Pressure dressing was given. Blood clots were removed from the vagina. Estimated blood loss was 600 mL. Intraoperative urine output was 150 mL, and the urine was kanchan colored. She received 2 g of IV Ancef prior to the incision. Patient tolerated the procedure well, and she was transferred to the recovery room in stable condition. Gomez [id number] MTDD
--- NOTE | 2017-11-10 14:21 | PN ---
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 Gbs pos Indication 39.2 weeks , previous c/sx2, obesity Intraop course uneventful
[2017-11-10] MEDS: CEFAZOLIN 1 GM PUSH 1 GM/10 ML DISP.SYRIN IVPUSH SCH (16:00)
[2017-11-11] MEDS: IBUPROFEN 600 MG TABLET (FP) PO PRN ×2 (00:24→04:56)
[2017-11-11] MEDS: CEFAZOLIN 1 GM PUSH 1 GM/10 ML DISP.SYRIN IVPUSH SCH ×2 (01:22→09:09)
[2017-11-11] MEDS: SIMETHICONE 80 MG TAB.CHEW (FP) PO PRN ×5 (04:55→21:09)
[2017-11-11] MEDS: ACETAMINOPHEN 325 MG TABLET (FP) PO PRN ×4 (04:55→21:10)
[2017-11-11 07:48] LABS: BASO % 0.6 % (0-2.0); EOS % 0.8 % (0-4.5); HEMATOCRIT 28.9 % (32.4-45.2); HEMOGLOBIN 9.1 GM/dL (10.7-15.3); LYMPH % 18.3 % (8-40); MCH 23.2 pg (25.7-33.7); MCHC 31.4 g/dl (32.0-36.0); MEAN CELL VOLUME 73.9 fl (80-96); MEAN PLT VOLUME 7.3 fl (7.5-11.1); MONO % 7.8 % (3.8-10.2); NEUT % 72.5 % (42.8-82.8); PLATELET COUNT 219 K/MM3 (134-434); RBC 3.92 M/mm3 (3.60-5.2); RDW 17.5 % (11.6-15.6); WHITE BLOOD COUNT 11.9 K/mm3 (4.0-10.0)
[2017-11-11] MEDS ORDERED: oxyCODONE HCL 5 MG TABLET PO PRN (08:00)
[2017-11-11] MEDS: oxyCODONE HCL 5 MG TABLET PO PRN ×4 (08:26→21:11)
[2017-11-11] MEDS ORDERED: ceFAZolin SODIUM 1 GM VIAL ONE (09:00)
[2017-11-11] MEDS: ENOXAPARIN NA (PORCINE) 40 MG/0.4 ML DISP.SYRIN SQ SCH (09:09)
[2017-11-11] MEDS: PRENATAL VITAMINS W/ FOLIC ACID TABLET (FP) PO SCH (09:09)
[2017-11-11] MEDS ORDERED: BISACODYL 10 MG SUPP.RECT RC PRN (09:46)
[2017-11-11] MEDS ORDERED: DIPHTH,PERTUSS(ACELL),TET 0.5 ML DISP.SYRIN IM ONE (10:00)
--- NOTE | 2017-11-11 10:23 | PN ---
Post Progress Note - Subjective Subjective: 27 yo Para 3 status post repeat , seen and evaluated. Doing well. Post Day: 1 Type of Delivery: Repeat C/S Vital Signs: Vital Signs Temperature 98.0 F 11/11/17 06:00 Pulse Rate 102 H 11/11/17 06:00 Respiratory Rate 20 11/11/17 08:00 Blood Pressure 126/65 11/11/17 06:00 O2 Sat by Pulse Oximetry (%) 100 11/10/17 10:30 Breast Exam: Yes: Soft Uterus: Yes: Fundus Firm Incision: Yes: Dressing dry and intact Abdomen/GI: Yes: Abdomen soft, Tolerating PO Lochia: Yes: Rubra Lochia, amount: Small Extremities: Yes: Calves non-tender Perineum: Yes: Intact Activity: Ambulating - Labs Labs: CBC WBC 11.9 K/mm3 (4.0-10.0) H D 11/11/17 06:50 RBC 3.92 M/mm3 (3.60-5.2) 11/11/17 06:50 Hgb 9.1 GM/dL (10.7-15.3) L 11/11/17 06:50 Hct 28.9 % (32.4-45.2) L 11/11/17 06:50 MCV 73.9 fl (80-96) L 11/11/17 06:50 MCH 23.2 pg (25.7-33.7) L 11/11/17 06:50 MCHC 31.4 g/dl (32.0-36.0) L 11/11/17 06:50 RDW 17.5 % (11.6-15.6) H 11/11/17 06:50 Plt Count 219 K/MM3 (134-434) D 11/11/17 06:50 MPV 7.3 fl (7.5-11.1) L 11/11/17 06:50 Neutrophils % 72.5 % (42.8-82.8) 11/11/17 06:50 Lymphocytes % 18.3 % (8-40) D 11/11/17 06:50 Monocytes % 7.8 % (3.8-10.2) 11/11/17 06:50 Eosinophils % 0.8 % (0-4.5) 11/11/17 06:50 Basophils % 0.6 % (0-2.0) 11/11/17 06:50 Problem List - Problems (1) Status post repeat low transverse section Code(s): Z98.891 - HISTORY OF UTERINE SCAR FROM PREVIOUS SURGERY Assessment/Plan Status post repeat Ambulation Analgesia as needed Continue routine post op care
--- NOTE | 2017-11-11 10:57 | PN ---
Progress Note (short form) - Note Progress Note: Anesthesia post op note, POD#1 S/P , under spinal. Pat seen and examined. VSS. No apparent post anesthesia complications. Signed off.
[2017-11-11] MEDS: FERROUS SO4 325 MG TABLET (FP) PO SCH (21:09)
[2017-11-11] MEDS: SENNOSIDES/DOCUSATE COMBO (SENNA PLUS) TABLET (UD) PO PRN (21:09)
[2017-11-12] MEDS: SIMETHICONE 80 MG TAB.CHEW (FP) PO PRN ×5 (01:21→23:00)
[2017-11-12] MEDS: IBUPROFEN 600 MG TABLET (FP) PO PRN ×4 (01:21→16:50)
[2017-11-12] MEDS: oxyCODONE HCL 5 MG TABLET PO PRN ×5 (01:22→23:00)
--- NOTE | 2017-11-12 07:41 | PN ---
Progress Note (short form) - Note Progress Note: pod 2 s/p repeat c/s ,doing well, ambulating CBC, BMP 11/11/17 06:50 Last Vital Signs Temp Pulse Resp BP Pulse Ox 97.8 F 106 H 18 120/73 100 11/11/17 22:00 11/11/17 22:00 11/11/17 22:00 11/11/17 22:00 11/10/17 10:30 abdomen soft, no distension, no cva incision dry, clean no calf tenderness plan cbc in am , ambulate
[2017-11-12] MEDS: FERROUS SO4 325 MG TABLET (FP) PO SCH ×2 (09:26→21:19)
[2017-11-12] MEDS: PRENATAL VITAMINS W/ FOLIC ACID TABLET (FP) PO SCH (09:26)
[2017-11-12] MEDS: ENOXAPARIN NA (PORCINE) 40 MG/0.4 ML DISP.SYRIN SQ SCH (09:26)
[2017-11-12] MEDS: SENNOSIDES/DOCUSATE COMBO (SENNA PLUS) TABLET (UD) PO PRN (21:19)
[2017-11-12] MEDS: ACETAMINOPHEN 325 MG TABLET (FP) PO PRN (23:01)
[2017-11-13] MEDS: SIMETHICONE 80 MG TAB.CHEW (FP) PO PRN ×2 (02:40→08:23)
[2017-11-13] MEDS: ACETAMINOPHEN 325 MG TABLET (FP) PO PRN ×2 (02:40→08:21)
[2017-11-13] MEDS: oxyCODONE HCL 5 MG TABLET PO PRN (02:40)
[2017-11-13 07:55] LABS: BASO % 0.7 % (0-2.0); EOS % 2.8 % (0-4.5); HEMATOCRIT 28.5 % (32.4-45.2); HEMOGLOBIN 8.7 GM/dL (10.7-15.3); LYMPH % 27.6 % (8-40); MCH 22.7 pg (25.7-33.7); MCHC 30.6 g/dl (32.0-36.0); MEAN PLT VOLUME 7.3 fl (7.5-11.1); MONO % 6.9 % (3.8-10.2); PLATELET COUNT 256 K/MM3 (134-434); RBC 3.85 M/mm3 (3.60-5.2); RDW 17.3 % (11.6-15.6); WHITE BLOOD COUNT 12.2 K/mm3 (4.0-10.0)
[2017-11-13] MEDS: FERROUS SO4 325 MG TABLET (FP) PO SCH (10:00)
[2017-11-13] MEDS: ENOXAPARIN NA (PORCINE) 40 MG/0.4 ML DISP.SYRIN SQ SCH (10:00)
[2017-11-13] MEDS: PRENATAL VITAMINS W/ FOLIC ACID TABLET (FP) PO SCH (10:00)
--- NOTE | 2017-11-13 12:41 | DS ---
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: Vital Signs Temperature 98.4 F 11/12/17 22:00 Pulse Rate 93 H 11/12/17 22:00 Respiratory Rate 18 11/12/17 22:00 Blood Pressure 125/76 11/12/17 22:00 O2 Sat by Pulse Oximetry (%) 100 11/10/17 10:30 Constitutional: Yes: Well Nourished Eyes: Yes: Conjunctiva Clear HENT: Yes: Atraumatic Neck: Yes: Supple Cardiovascular: Yes: Regular Rate and Rhythm Respiratory: Yes: Regular Gastrointestinal: Yes: Normal Bowel Sounds ...Rectal Exam: Yes: WNL Renal/: Yes: WNL Pelvis: Yes: WNL External Genitalia: Yes: Normal Vaginal Exam: Yes: Normal Uterus: Yes: Firm Wound/Incision: Yes: Well Approximated, [place] Intact Neurological: Yes: Alert, Oriented ...Motor Strength: WNL Psychiatric: Yes: Alert, Oriented Labs: CBC, BMP 11/13/17 07:12 Delivery - Delivery Section: Repeat, Low Flap Transverse Type of Anesthesia: Spinal Episiotomy/Laceration: None EBL (cc): 600 (100 ml intra op ) Delivery, Single - Stages of Labor Date of Delivery: 11/10/17 Time of Delivery: 08:43 Time Placenta Delivered: 08:44 Placenta: Yes: Manual Removal, Uterine Exploration - 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: Yes Name: Jamir Foss Infant Gender: Male Weight: 7 lb 6 oz Position: Right, OT Total Hours ROM (Hrs/Mins): 0hrs 2min - 1 Minute Total Score: 9 5 Minutes Total Score: 9 - Feeding Plan Initial Plan: Exclusive throughout hospitalization Discharge Summary Reason For Visit: LABOR ADMIT FOR Current Active Problems Anemia affecting in third trimester (Acute) Obesities, morbid (Acute) Positive GBS test (Acute) with 39 completed weeks gestation (Acute) Previous section (Acute) Status post repeat low transverse section (Acute) Procedures: Principal: Repeat Low Transverse Hospital Course: Routine Post op care Condition: Good - Instructions Diet, Activity, Other Instructions: Post Instructions pt instructed to call clinic for appointment for Wednesday11/16/17. DIET: Continue good diet high in protein, calcium, and iron rich foods. Drink at least eight (8) glasses of water daily in addition to other fluids. ___ Regular diet MEDICATIONS: Continue vitamins and iron as previously directed. Motrin and Tylenol may be taken for minor discomfort. ACTIVITY: Mild to moderate exercise may be started in two (2) weeks. Take frequent rest periods. Resume normal activity after six (6) week check up. WOUND CARE OF OPERATIVE SITE: Continue use of perineal bottle until vaginal discharge stops. Keep area clean. Shower daily. Keep abdominal wound dry. Report any drainage or redness to physician. Tub baths, tampons and douches are not permitted for [address] Breast feeding 7 or Bottle feeding BREAST CARE: (For those that are not breast feeding): If engorgement occurs: Wear tight fitting bra. Take Tylenol or Motrin for pain. Apply cold packs (ice in bags to each breast ) FAMILY PLANNING: There are many control alternatives to pursue and they should be discussed at your first office visit. You may resume sexual activity after your six (6) week check up. (Remember, breast feeding is not a contraceptive) NEXT PHYSICIAN APPOINTMENT: Be certain to call for a one (1) week appointment, unless otherwise directed. . Rtc Wednesday for ethel removal. . call [phone] for appt Call Clinic or got to Emergency Dept if you have any of the following: Heavy vaginal bleeding Painful urination Leg pain Unusual odor noted to vaginal bleeding High fever Red streaking noted on breast Referrals: Ruby Taylor MD [Staff Physician] - Disposition: HOME - Home Medications Comprehensive Discharge Medication List: Ambulatory Orders Albuterol Sulfate Inhaler - [Ventolin HFA Inhaler -] 1 - 2 inh PO Q4H PRN Ferrous Sulfate 325 mg PO DAILY 11/04/17 Pnv No.95/Ferrous Fum/Folic AC [ Vitamin Tablet] 1 each PO DAILY Acetaminophen [Tylenol .Regular Strength -] 500 mg PO Q4H PRN #30 tablet Docusate Sodium [Colace] 100 mg PO BID #60 capsule 11/11/17 Ferrous Sulfate [Feosol] 325 mg PO BID #60 tab 11/11/17 Ibuprofen [Motrin -] 600 mg PO Q4H PRN #30 tablet 11/11/17 Vitamins (Sjr) - 1 tab PO DAILY #30 tablet 11/11/17
[2017-11-13 13:05] VITALS: BP 131/81; PULSE 91; TEMP 98.7
== END 2017-11-13 12:45 | disposition home or self-care (01) | DRG 540 ==
LOC: JLDR 06:15 → J3W 10:49
PROVIDERS: ADMIT Obstetrics & Gynecology; ATTEND Obstetrics & Gynecology
PROC: 10D00Z1 Extraction of Products of Conception, Low, Open Approach (ICD-10-PCS; principal; 2017-11-10)
DX: O34.211 Maternal care for low transverse scar from previous cesarean delivery (principal); E66.01 Morbid (severe) obesity due to excess calories; Z68.41 Body mass index [BMI] 40.0-44.9, adult; O99.02 Anemia complicating childbirth; D64.9 Anemia, unspecified; O99.824 Streptococcus B carrier state complicating childbirth; O34.13 Maternal care for benign tumor of corpus uteri, third trimester; D25.1 Intramural leiomyoma of uterus; Z3A.39 39 weeks gestation of pregnancy; Z37.0 Single live birth
CPT/HCPCS: 36415; 71046-TC; 82962; 85025; 87086; 94010

== ENCOUNTER 2018-10-12 12:17 | Emergency (ER) | payer OTHER ==
[2018-10-12] MEDS ORDERED: METOCLOPRAMIDE HCL INJECTION 10 MG/2 ML VIAL IM ONE (12:23)
[2018-10-12] MEDS ORDERED: ACETAMINOPHEN 325 MG TABLET (FP) PO ONE (12:23)
--- NOTE | 2018-10-12 12:23 | PDOC ---
Rapid Medical Evaluation Medical Evaluation: Allergies Allergy/AdvReac Type Severity Reaction Status Date / Time peanut Allergy Severe Difficulty Verified 11/10/17 07:24 Breathing No Known Drug Allergies Allergy Verified 11/10/17 07:24 I have performed a brief in-person evaluation of this patient. The patient presents with a chief complaint of: C/O WAITE, nausea, fever from last night; also has dry cough, sore throat, body aches; patient took Motrin 800 mg around 1 hour prior to coming Pertinent physical exam findings: Lungs CTA B/L, cardio RRR, abdomen soft, ND, NT I have ordered the following: Flu swab, Tylenol, Reglan The patient will proceed to the ED for further evaluation. 10/12/18 12:18
[2018-10-12 12:27] VITALS: BP 120/87; PULSE 92; TEMP 98.5; BMI 39.1
[2018-10-12] MEDS ORDERED: ACETAMINOPHEN 325 MG TABLET (FP) ONE (13:25)
[2018-10-12] MEDS ORDERED: MECLIZINE HCL 25 MG TABLET (FP) PO ONE (13:25)
[2018-10-12] MEDS ORDERED: MECLIZINE HCL 25 MG TABLET (FP) ONE (13:26)
--- NOTE | 2018-10-12 13:32 | PDOC ---
History of Present Illness - General Chief Complaint: Cold Symptoms Stated Complaint: Cough, fever, sore throat Time Seen by Provider: 10/12/18 12:47 History Source: Patient Exam Limitations: No Limitations - History of Present Illness Initial Comments: 10/12/18 13:26 28 yr obese female with c/o cough headache , sneezing for 3-4 days. Pt has history of asthma using nebulizer at home with some relief. no sick contacts. no abd pain or vomiting. pt has history of vertigo as well. Severity: reports: mild Past History - Past Medical History Allergies/Adverse Reactions: Allergies Allergy/AdvReac Type Severity Reaction Status Date / Time peanut Allergy Severe Difficulty Verified 10/12/18 12:23 Breathing No Known Drug Allergies Allergy Verified 10/12/18 12:23 Home Medications: Ambulatory Orders Meclizine HCl [Antivert -] 25 mg PO TID PRN #21 tablet 10/12/18 Asthma: Yes Cancer: No Cardiac Disorders: No COPD: No Diabetes: No HTN: No Seizures: No Thyroid Disease: No - Surgical History Abdominal Surgery: Yes (C/S X3) - Immunization History Td Vaccination: Yes TDAP Vaccination: Yes Immunization Up to Date: Yes - Suicide/Smoking/Psychosocial Hx Smoking Status: No Smoking History: Never smoked Years of Tobacco Use: 0 Have you smoked in the past 12 months: No Number of Cigarettes Smoked Daily: 0 Cigars Per Day: 0 Information on smoking cessation initiated: No Hx Alcohol Use: No Drug/Substance Use Hx: No Substance Use Type: None Hx Substance Use Treatment: No Review of Systems - Review of Systems Able to Perform ROS?: Yes Is the patient limited Cuban proficient: No Constitutional: No: Symptoms Reported HEENTM: Yes: Other (sneezing ) Respiratory: Yes: Cough Cardiac (ROS): No: Symptoms Reported ABD/GI: No: Symptoms Reported Musculoskeletal: Yes: Symptoms Reported *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 - Vital Signs Last Vital Signs Temp Pulse Resp BP Pulse Ox 98.5 F 92 H 18 120/87 99 10/12/18 12:20 10/12/18 12:20 10/12/18 12:20 10/12/18 12:20 10/12/18 12:20 - 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 General Appearance: Yes: Nourished, Appropriately Dressed HEENT: positive: EOMI, [place], Nasal Congestion, TM Erythema Neck: negative: Tender Respiratory/Chest: positive: Lungs Clear, Normal Breath Sounds. negative: Chest Tender, Rhonchi, Wheezing Cardiovascular: positive: Regular Rhythm, Regular Rate Musculoskeletal: positive: Normal Inspection Extremity: positive: Normal Capillary Refill, Normal Inspection, Normal Range of Motion Integumentary: positive: Normal Color, Dry, Warm Neurologic: positive: Fully Oriented, Alert, Normal Mood/Affect, Normal Response , Motor Strength 5/5 Moderate Sedation - Procedure Monitoring Vital Signs: Procedure Monitoring Vital Signs Temperature 98.5 F 10/12/18 12:20 Pulse Rate 92 H 10/12/18 12:20 Respiratory Rate 18 10/12/18 12:20 Blood Pressure 120/87 10/12/18 12:20 O2 Sat by Pulse Oximetry (%) 99 10/12/18 12:20 ED Treatment Course - Medications Given in the ED: ED Medications Discontinued Medications Generic Name Dose Route Start Last Admin Trade Name Freq PRN Reason Stop Dose Admin Metoclopramide HCl 10 mg 10/12/18 12:23 10/12/18 13:24 Reglan Injection - IM 10/12/18 12:24 Not Given ONCE ONE Medical Decision Making - Medical Decision Making 10/12/18 13:27 cc: dizzyness, headache, sneezing cough flu swab is negative pt is stable no acute distress tylenol and meclizine now pt ambulating steady gait 10/12/18 13:29 pt asking for 2 days off from work. 10/12/18 14:04 *DC/Admit/Observation/Transfer Diagnosis at time of Disposition: Viral syndrome, Flu-like symptoms - Discharge Dispostion Disposition: HOME Condition at time of disposition: Good - Prescriptions Prescriptions: Meclizine HCl [Antivert -] 25 mg PO TID PRN #21 tablet PRN Reason: dizzyness - Referrals Referrals: Krystian Powers [Primary Care Provider] - Jt Rodriguez MD [Staff Physician] - - Patient Instructions Additional Instructions: drink at least 2 liters of water a day take tylenol 650mg every 4-6hrs for headache/fever or body aches take meclizine for dizzyness as directed follow with ENT for dizzyness if it continues - Post Discharge Activity Forms/Work/School Notes: Back to Work
== END 2018-10-12 13:37 | disposition home or self-care (01) ==
LOC: JERFT 12:17
DX: B34.9 Viral infection, unspecified (principal); J11.1 Influenza due to unidentified influenza virus with other respiratory manifestations; J45.909 Unspecified asthma, uncomplicated; E66.9 Obesity, unspecified; Z68.39 Body mass index [BMI] 39.0-39.9, adult; Z91.010 Allergy to peanuts
CPT/HCPCS: 87804; 99281-25

== ENCOUNTER 2018-12-10 03:30 | Emergency (ER) | payer OTHER ==
--- NOTE | 2018-12-10 03:46 | PDOC ---
History of Present Illness - General Chief Complaint: Nausea/Vomiting Stated Complaint: DIARRHEA/VOMITING - History of Present Illness Initial Comments: 12/10/18 05:32 7 episdoes ofnbnb vomtiing, 7 episodes of diarrhea over 1 day [facility] 11/03/2018 no abdomianl pain no fever no chest pain no recent travel no sob Past History - Past Medical History Allergies/Adverse Reactions: Allergies Allergy/AdvReac Type Severity Reaction Status Date / Time peanut Allergy Severe Difficulty Verified 12/10/18 03:42 Breathing No Known Drug Allergies Allergy Verified 12/10/18 03:42 Home Medications: Ambulatory Orders Meclizine HCl [Antivert -] 25 mg PO TID PRN #21 tablet 10/12/18 Asthma: Yes Cancer: No Cardiac Disorders: No COPD: No Diabetes: No HTN: No Seizures: No Thyroid Disease: No - Surgical History Abdominal Surgery: Yes (C/S X2) - Immunization History Td Vaccination: Yes TDAP Vaccination: Yes Immunization Up to Date: Yes - Suicide/Smoking/Psychosocial Hx Smoking Status: No Smoking History: Never smoked Years of Tobacco Use: 0 Have you smoked in the past 12 months: No Number of Cigarettes Smoked Daily: 0 Cigars Per Day: 0 Hx Alcohol Use: No Drug/Substance Use Hx: No Substance Use Type: None Hx Substance Use Treatment: No ED Treatment Course - LABORATORY CBC & Chemistry Diagram: 12/10/18 04:03 12/10/18 04:03 *DC/Admit/Observation/Transfer Diagnosis at time of Disposition: Qualifiers: Weeks of gestation: unspecified Qualified Code(s): Z34.90 - Encounter for supervision of normal , unspecified, unspecified trimester - Discharge Dispostion Disposition: HOME Condition at time of disposition: Stable Decision to Admit order: No - Referrals Referrals: Krystian Powers [Primary Care Provider] - Cortez Amaya MD [Staff Physician] - - Patient Instructions Printed Discharge Instructions: DI for Vomiting -- Adult, Nausea of ( Alternative Therapy) Additional Instructions: You were seen in the ED for nausea, vomiting and diarrhea. In the ED you were worked up with labwork and found to have a positive test. You did not want a transvaginal ultrasound at this time despite recommendation. You are advised to follow up with your Primary Care Physician within 1 week. You are given a referral for OBGYN and are advised to follow up within 1 week. Return to the ED if you experience worsening nausea, vomiting, blood in the vomit or stool, vaginal bleeding or discharge, fever, chest pain or shortness of breath. - Post Discharge Activity
[2018-12-10 03:54] VITALS: BP 138/87; PULSE 80; TEMP 98.7; BMI 39.9
[2018-12-10] MEDS ORDERED: SODIUM CHLORIDE 1,000 ML IV SCH (04:00)
[2018-12-10 04:08] LABS: BASO % 1.3 % (0-2.0); EOS % 1.8 % (0-4.5); HEMATOCRIT 37.8 % (32.4-45.2); HEMOGLOBIN 12.6 GM/dL (10.7-15.3); LYMPH % 42.9 % (8-40); MCH 26.9 pg (25.7-33.7); MCHC 33.4 g/dl (32.0-36.0); MEAN CELL VOLUME 80.7 fl (80-96); MEAN PLT VOLUME 8.1 fl (7.5-11.1); PLATELET COUNT 304 K/MM3 (134-434); RBC 4.68 M/mm3 (3.60-5.2); RDW 15.9 % (11.6-15.6); WHITE BLOOD COUNT 6.2 K/mm3 (4.0-10.0)
[2018-12-10 04:46] LABS: ALBUMIN 3.4 g/dl (3.4-5.0); ALK PHOS 75 U/L (45-117); ANION GAP 6 MMOL/L (8-16); BILIRUBIN,TOTAL 0.2 mg/dL (0.2-1); BLOOD UREA NITROGEN 11 mg/dL (7-18); CALCIUM 8.7 mg/dL (8.5-10.1); CHLORIDE 106 mmol/L (98-107); CO2 26 mmol/L (21-32); CREATININE 0.7 mg/dL (0.55-1.3); GLUCOSE,RANDOM 97 mg/dL (74-106); POTASSIUM 4.2 mmol/L (3.5-5.1); SGOT/AST 15 U/L (15-37); SGPT/ALT 15 U/L (13-61); SODIUM 138 mmol/L (136-145); TOT PROT 7.1 g/dl (6.4-8.2)
[2018-12-10 05:14] LABS: HCG,QUALITATIVE URINE Positive
[2018-12-10 05:16] LABS: URINE APPEARANCE CLEAR; URINE BILIRUBIN NEGATIVE (<2.0 mg/dL); URINE COLOR STRAW; URINE GLUCOSE (UA) NEGATIVE (NEGATIVE); URINE KETONE NEGATIVE (NEGATIVE); URINE LEUK ESTERASE NEGATIVE (NEGATIVE); URINE NITRITE NEGATIVE (NEGATIVE); URINE PROTEIN 1+ (NEGATIVE); URINE UROBILINOGEN NEGATIVE mg/dL (0.2-1.0)
[2018-12-10] MEDS ORDERED: METOCLOPRAMIDE HCL INJECTION 10 MG/2 ML VIAL IVPUSH ONE (05:34)
[2018-12-10] MEDS ORDERED: METOCLOPRAMIDE HCL INJECTION 10 MG/2 ML VIAL ONE (05:41)
[2018-12-10 06:19] LABS: EPI CELLS RARE /HPF (FEW); URINE BACTERIA RARE /hpf (NONE SEEN); URINE MUCUS RARE
== END 2018-12-10 06:24 | disposition home or self-care (01) ==
LOC: JER 03:30
PROC: 3E033GC Introduction of Other Therapeutic Substance into Peripheral Vein, Percutaneous Approach (ICD-10-PCS; principal; 2018-12-10)
DX: O26.891 Other specified pregnancy related conditions, first trimester (principal); R11.2 Nausea with vomiting, unspecified; Z3A.00 Weeks of gestation of pregnancy not specified
CPT/HCPCS: 36415; 80053; 81003; 81015; 84703; 85025; 87804; 96374; 99282-25; J7030

== ENCOUNTER 2019-01-03 19:42 | Emergency (ER) | payer OTHER ==
--- NOTE | 2019-01-03 20:00 | PDOC ---
Rapid Medical Evaluation Time Seen by Provider: 01/03/19 19:58 Medical Evaluation: Allergies Allergy/AdvReac Type Severity Reaction Status Date / Time peanut Allergy Severe Difficulty Verified 12/10/18 03:42 Breathing No Known Drug Allergies Allergy Verified 12/10/18 03:42 03 19:58 I have performed a brief in-person evaluation of this patient. The patient presents with a chief complaint of: lower abd and lower back pain Pertinent physical exam findings: obese abdomen SNTND. I have ordered the following: labs, urine, TVUS The patient will proceed to the ED for further evaluation. Discharge Disposition - Diagnosis Abdominal pain affecting - Referrals - Patient Instructions - Post Discharge Activity
[2019-01-03] MEDS ORDERED: ACETAMINOPHEN 500 MG TABLET (FP) PO ONE (20:01)
[2019-01-03 20:03] VITALS: BP 127/60; PULSE 89; TEMP 98.1; BMI 39.2
[2019-01-03] MEDS ORDERED: ACETAMINOPHEN 325 MG TABLET (FP) ONE (22:04)
[2019-01-03] MEDS ORDERED: ONDANSETRON *ODT* 4 MG TABLET ONE (22:15)
[2019-01-03] MEDS ORDERED: ONDANSETRON *ODT* 4 MG TABLET SL ONE (22:36)
--- NOTE | 2019-01-03 22:36 | PDOC ---
History of Present Illness - General History Source: Patient Exam Limitations: No Limitations - History of Present Illness Initial Comments: 01/03/19 22:36 The patient is a 28 year old female, 8 weeks , who presents to the emergency department for evaluation of lower back pain, nausea, vomiting, and loose stool. The patient denies abdominal pain, fever, chest pain, SOB. Denies recent travel. Patient states she "wants a picture of the baby". PCP:Gio <Audelia Lazo - Last Filed: 01/03/19 22:36> <Ruba Chavez - Last Filed: 01/03/19 22:54> - General Chief Complaint: Pain, Acute Stated Complaint: 8 WEEKS PREG/BACK PAIN/ABD PAIN Time Seen by Provider: 01/03/19 19:58 Past History <Audelia Lazo - Last Filed: 01/03/19 22:36> - Past Medical History Asthma: Yes Cancer: No Cardiac Disorders: No COPD: No Diabetes: No HTN: No Seizures: No Thyroid Disease: No - Surgical History Abdominal Surgery: Yes (C/S X2) - Immunization History Td Vaccination: Yes TDAP Vaccination: Yes Immunization Up to Date: Yes - Suicide/Smoking/Psychosocial Hx Smoking Status: No Smoking History: Never smoked Years of Tobacco Use: 0 Have you smoked in the past 12 months: No Number of Cigarettes Smoked Daily: 0 Cigars Per Day: 0 Information on smoking cessation initiated: No Hx Alcohol Use: No Drug/Substance Use Hx: No Substance Use Type: None Hx Substance Use Treatment: No <Ruba Chavez - Last Filed: 01/03/19 22:54> - Past Medical History Allergies/Adverse Reactions: Allergies Allergy/AdvReac Type Severity Reaction Status Date / Time peanut Allergy Severe Difficulty Verified 01/03/19 20:03 Breathing No Known Drug Allergies Allergy Verified 01/03/19 20:03 Home Medications: Ambulatory Orders Meclizine HCl [Antivert -] 25 mg PO TID PRN #21 tablet 10/12/18 Abd/GI Specific PMHX - Complaint Specific PMHX Colitis: No Diverticulitis: No Gall Bladder Disease: No GERD: No Hepatitis: No Irritable Bowel Synd (IBS): No Pancreatitis: No GI Ulcer Disease: No <Ruba Chavez - Last Filed: 01/03/19 22:54> Review of Systems - Review of Systems Comments:: 01/03/19 22:37 CONSTITUTIONAL: Absent: fever, no chills, no fatigue CARDIOVASCULAR: Absent: chest pain, no palpitations RESPIRATORY: Absent: cough, no SOB GI:(+)nausea, (+) vomiting Absent: abdominal pain, no constipation GENITOURINARY: Absent: dysuria, no frequency, no hematuria MUSKULOSKELETAL: (+) back pain Absent: no arthralgia, no myalgia NEURO: Absent: headache <Audelia Lazo - Last Filed: 01/03/19 22:36> *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 - Vital Signs Last Vital Signs Temp Pulse Resp BP Pulse Ox 98.1 F 89 16 127/60 100 01/03/19 20:01 01/03/19 20:01 01/03/19 20:01 01/03/19 20:01 01/03/19 20:01 - 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 Comments: 01/03/19 22:37 GENERAL: (+)obese Well-appearing, well-nourished. No apparent distress. HEENT: Normocephalic, atraumatic. PERRL, EOM intact. CARDIOVASCULAR: Normal S1, S2. Regular rate and rhythm. PULMONARY: Clear to auscultation bilaterally. ABDOMEN: Soft, non-distended, non-tender. EXTREMITIES: Normal ROM in all four extremities. No gross deformities. SKIN: Warm, dry. No rash NEUROLOGICAL: No focal neurological deficits. <Audelia Lazo - Last Filed: 01/03/19 22:36> - Vital Signs Last Vital Signs Temp Pulse Resp BP Pulse Ox 98.1 F 89 16 127/60 100 01/03/19 20:01 01/03/19 20:01 01/03/19 20:01 01/03/19 20:01 01/03/19 20:01 <Ruba Chavez - Last Filed: 01/03/19 22:54> Moderate Sedation - Procedure Monitoring Vital Signs: Procedure Monitoring Vital Signs Temperature 98.1 F 01/03/19 20:01 Pulse Rate 89 01/03/19 20:01 Respiratory Rate 16 01/03/19 20:01 Blood Pressure 127/60 01/03/19 20:01 O2 Sat by Pulse Oximetry (%) 100 01/03/19 20:01 <Audelia Lazo - Last Filed: 01/03/19 22:36> - Procedure Monitoring Vital Signs: Procedure Monitoring Vital Signs Temperature 98.1 F 01/03/19 20:01 Pulse Rate 89 01/03/19 20:01 Respiratory Rate 16 01/03/19 20:01 Blood Pressure 127/60 01/03/19 20:01 O2 Sat by Pulse Oximetry (%) 100 01/03/19 20:01 <Ruba Chavez - Last Filed: 01/03/19 22:54> ED Treatment Course - Medications Given in the ED: ED Medications Discontinued Medications Generic Name Dose Route Start Last Admin Trade Name Freq PRN Reason Stop Dose Admin Acetaminophen 1,000 mg 01/03/19 20:01 01/03/19 22:12 Tylenol - PO 01/03/19 20:02 1,000 mg ONCE ONE Administration <Audelia Lazo - Last Filed: 01/03/19 22:36> - Medications Given in the ED: ED Medications Discontinued Medications Generic Name Dose Route Start Last Admin Trade Name Freq PRN Reason Stop Dose Admin Acetaminophen 1,000 mg 01/03/19 20:01 01/03/19 22:12 Tylenol - PO 01/03/19 20:02 1,000 mg ONCE ONE Administration <Ruba Chavez - Last Filed: 01/03/19 22:54> Medical Decision Making - Medical Decision Making 01/03/19 22:52 Pelvic ultrasound reveals single live IUP 8 weeks and 2 days, cardiac rate 171. No subchorionic bleeding noted. Patient has benign abdominal exam. Patient denies any vaginal bleeding. Patient has complaint of nausea and vomiting. Past several weeks. Impression hyperemesis Plan patient follow-up with Dr. Amaya this week <Ruba Chavez - Last Filed: 01/03/19 22:54> *DC/Admit/Observation/Transfer - Attestations Scribe Attestion: 01/03/19 22:37 Documentation prepared by Audelia Lazo, acting as medical legal investigator for Ruba Chavez MD. <Audelia Lazo - Last Filed: 01/03/19 22:36> <Ruba Chavez - Last Filed: 01/03/19 22:54> Diagnosis at time of Disposition: Hyperemesis Qualifiers: Weeks of gestation: 8 weeks Qualified Code(s): Z3A.08 - 8 weeks gestation of - Discharge Dispostion Disposition: HOME Condition at time of disposition: Stable - Referrals Referrals: Krystian Powers [Primary Care Provider] - - Patient Instructions Printed Discharge Instructions: DI for Hyperemesis Gravidarum, DI for -- Discomforts and Remedies Additional Instructions: please keep your appointment this week with Dr Donald - Post Discharge Activity Forms/Work/School Notes: Back to Work
== END 2019-01-03 23:09 | disposition home or self-care (01) ==
LOC: SUPCPDRO 19:42 → JER 19:42
DX: O26.891 Other specified pregnancy related conditions, first trimester (principal); O21.0 Mild hyperemesis gravidarum; Z3A.08 8 weeks gestation of pregnancy
CPT/HCPCS: 76817-TC; 99281-25; Q0162

== ENCOUNTER 2019-03-29 10:24 | Emergency (ER) | payer OTHER ==
[2019-03-29 10:37] VITALS: BMI 39.6
[2019-03-29 11:54] VITALS: BP 123/78; PULSE 106; TEMP 98.3
[2019-03-29 12:03] LABS: PH,URINE 6.5 (5.0-8.0); URINE APPEARANCE CLEAR; URINE BILIRUBIN NEGATIVE (NEGATIVE); URINE COLOR YELLOW; URINE GLUCOSE (UA) NEGATIVE (NEGATIVE); URINE KETONE NEGATIVE (NEGATIVE); URINE LEUK ESTERASE NEGATIVE (NEGATIVE); URINE NITRITE NEGATIVE (NEGATIVE); URINE PROTEIN TRACE (NEGATIVE); URINE UROBILINOGEN 0.2 mg/dL (0.2-1.0)
== END 2019-03-29 12:25 | disposition home or self-care (01) ==
LOC: JER 10:24
DX: O26.893 Other specified pregnancy related conditions, third trimester (principal); R10.30 Lower abdominal pain, unspecified; M54.5 Low back pain; Z3A.28 28 weeks gestation of pregnancy
CPT/HCPCS: 81003; 99281-25

== ENCOUNTER 2019-05-24 14:58 | Emergency (ER) | payer OTHER ==
[2019-05-24 15:05] VITALS: BMI 42.0
[2019-05-24] MEDS ORDERED: LACTATED RINGERS SOLUTION 1,000 ML IV SCH ×2 (16:00→17:00)
[2019-05-24 16:44] VITALS: BP 134/66; PULSE 104; TEMP 98.5
== END 2019-05-24 17:38 | disposition home or self-care (01) ==
LOC: JER 14:58
PROC: 3E0337Z Introduction of Electrolytic and Water Balance Substance into Peripheral Vein, Percutaneous Approach (ICD-10-PCS; principal; 2019-05-24)
DX: O26.892 Other specified pregnancy related conditions, second trimester (principal); Z3A.28 28 weeks gestation of pregnancy
CPT/HCPCS: 96360; 96361; 99281-25

== ENCOUNTER 2019-08-09 05:30 | Inpatient (IN) | payer OTHER ==
[~2019-08-09 05:30] MED LIST changes: -ACETAMINOPHEN 325 MG TABLET (FP) PO ONE; +CITRIC ACID/SODIUM CITRATE 30 ML UNIT-DOSE CUP PO ONE; +ELECTROLYTE-148 SOLN 500 ML IV ONE; -ONDANSETRON *ODT* 4 MG TABLET ONE; -ONDANSETRON *ODT* 4 MG TABLET SL ONE; -PHENAZOPYRIDINE HCL 100 MG TABLET (FP) PO ONE
[2019-08-09] MEDS ORDERED: ELECTROLYTE-148 SOLN 1,000 ML IV SCH (06:00)
[2019-08-09 06:05] VITALS: BMI 42.0
--- NOTE | 2019-08-09 08:10 | HP ---
Past Medical History - Primary Care Physician PCP:: Ruby Taylor - Admission Chief Complaint: 28 yrs , , 39.4 weeks, previous c/section x3 , for repeat c/s , requests voluntory sterlization History of Present Illness: PNC at 2, [facility] ([facility]) , wt gain 19 lbs panel :01/05/19 : O pos, , rpr nr, hbsag neg, rubella pos, hiv neg, cf screen neg , Pap nilm gc/ct neg h/h 11.8/34.5 , plt 313 03/02/19 gct :142. h/h11.0/34 3 hr Gtt : 81, 154, 132, 98 WNL 36 weeks panel h/h 8.8/29.8, plt 347, gbs , gc/ct neg , hiv neg US done by [facility] . 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 Weeks Gestation by Dates: 39.4 ...EDC by Dates: 08/12/19 Additional OB History: G1 2007 , primary lftc/section 7'14' [facility]. G2 , repeat lftc/s 5'13" [facility]. G3 11/10/2017 , repeat lftc/s 7'13" [facility] h/o GDM during last pregn , diet controlled Heme/Onc: Yes: Anemia (non compliant) Infectious Disease: Yes: STD's ( Non 16/18 HR HPV pos). No: HIV, Tuberculosis Psych: Yes: Other (h/o mood changes). No: Addictions, Anxiety, Bipolar, Depression, Panic, Psychosis, Schizophrenia - Past Surgical History Past Surgical History: Yes: (09/17/2008 & 07/24/2010, 11/10/2017) Hx Myomectomy: No Hx Transabdominal Cerclage: No - Smoking History Smoking history: Never smoked Have you smoked in the past 12 months: No Aproximately how many cigarettes per day: 0 - Alcohol/Substance Use Hx Alcohol Use: No History of Substance Use: reports: None - Social History History of Recent Travel: No Home Medications - Allergies Allergies/Adverse Reactions: Allergies Allergy/AdvReac Type Severity Reaction Status Date / Time peanut Allergy Severe Difficulty Verified 08/09/19 05:36 Breathing No Known Drug Allergies Allergy Verified 08/09/19 05:36 - Home Medications Home Medications: Ambulatory Orders Albuterol Sulfate [Albuterol Sulfate Hfa] 1 - 2 puff PO Q4H PRN 07/20/19 Vitamins (Sjr) - 1 tab PO DAILY 07/20/19 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 - Maternity Vital Signs: Vital Signs Temperature 98.0 F 08/09/19 05:30 Pulse Rate 93 H 08/09/19 05:30 Respiratory Rate 08/09/19 05:30 Blood Pressure 144/80 08/09/19 05:30 O2 Sat by Pulse Oximetry (%) Selected Entries 08/09/19 05:30 Weight 253 lb Constitutional: Yes: Well Nourished, No Distress, Obese Eyes: Yes: WNL HENT: Yes: WNL, Atraumatic, Normocephalic Neck: Yes: WNL Cardiovascular: Yes: WNL Lungs: Clear to auscultation Breast(s): Yes: WNL. No: Mass - Abdominal Exam/OB Fundal Height: 40 Number of Fetuses: Single Presentation: Vertex Contractions: No Monitor Mode: External Heart Rate (range): 130 Heart Rate Location: Midline Category: I Accelerations: Uniform Decelerations: None - Vaginal Exam/OB Vaginal Bleediing: No Speculum Exam: No Dilatation (cm): close Amniotic Membrane Status: Intact Presentation: Vertex/Position Station: -3 - 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 Musculoskeletal: Yes: WNL Extremities: Yes: WNL. No: Calf Tenderness Edema: LLE: 1+, RLE: 1+ Integumentary: Yes: Incision (pfannensteil scar) Deep Tendon Reflex Grade: Normal +2 ...Motor Strength: WNL Psychiatric: Yes: WNL, Alert, Oriented - Labs Lab Results: Laboratory Tests 08/07/19 08/07/19 08/07/19 09:10 09:10 09:10 WBC 7.7 Hgb 8.4 L Hct 27.4 L D Plt Count 317 PT with INR 11.50 INR 0.97 Sodium Potassium Chloride Carbon Dioxide Anion Gap BUN Creatinine Calcium Total Bilirubin AST ALT Urine Protein 1+ H RPR Titer 08/07/19 08/07/19 09:10 09:10 WBC Hgb Hct Plt Count PT with INR INR Sodium 138 Potassium 4.7 Chloride 106 Carbon Dioxide 24 Anion Gap 8 BUN 9.6 Creatinine 0.6 Calcium 8.6 Total Bilirubin 0.4 AST 14 L ALT 10 L Urine Protein RPR Titer Nonreactive Hemorrhage Risk Assessment - Risk Factors Medium Risk Factors: Yes: Prior , uterine surgery,or multiple laparotomies, Obesity (BMI >40) Risk Score: 2 Risk Level: High Risk Problem List - Problems (1) with 39 completed weeks gestation Code(s): Z3A.39 - 39 WEEKS GESTATION OF (2) Status post repeat low transverse section Code(s): Z98.891 - HISTORY OF UTERINE SCAR FROM PREVIOUS SURGERY (3) Anemia affecting in third trimester Code(s): O99.013 - ANEMIA COMPLICATING , THIRD TRIMESTER (4) Obesities, morbid Code(s): E66.01 - MORBID (SEVERE) OBESITY DUE TO EXCESS CALORIES (5) Multiparity Code(s): Z64.1 - PROBLEMS RELATED TO MULTIPARITY Assessment/Plan 28 yrs , gb s neg, morbidly obese, severe anemia , previous c/sx3 , mutiparity requests repeat c/s & voluntory sterlization Plan repeat lftc/s + btl
[2019-08-09] MEDS ORDERED: morphine SULFATE/PF 0.5 MG/ML (2cc Syringe - QUVA) ONE (08:17)
[2019-08-09] MEDS ORDERED: PHENYLEPHRINE HCL 10 MG/1 ML SINGLE DOSE VIAL ONE (08:17)
[2019-08-09] MEDS ORDERED: ACETAMINOPHEN 325 MG TABLET (FP) PO PRN (08:21)
[2019-08-09] MEDS ORDERED: ONDANSETRON 4 MG/2 ML VIAL IVPUSH PRN (08:21)
[2019-08-09] MEDS ORDERED: EPINEPHrine/PF 1 MG/1 ML (1:1,000) AMPULE ONE (08:31)
[2019-08-09] MEDS ORDERED: ePHEDrine SULFATE 50 MG/1 ML AMPULE ONE (08:48)
[2019-08-09] MEDS ORDERED: OXYTOCIN 20 UNITS in 0.9% NS 40 UNIT/2,000 ML INFUS.BAG IV ONE (09:08)
[2019-08-09] MEDS ORDERED: METHYLERGONOVINE MALEATE 0.2 MG/1 ML AMP IM PRN (09:56)
[2019-08-09] MEDS: OXYTOCIN 20 UNITS in 0.9% NS 20 UNIT/1,000 ML INFUS.BAG IV SCH (10:00)
--- NOTE | 2019-08-09 10:14 | OP ---
Operative Note - Note: Operative Date: 08/09/19 Pre-Operative Diagnosis: 39 weeks, previous c/s x3 , multiparity , voluntory sterlization , morbid obesity Operation: repeat lftc/s & btl Findings: 9.02 AM, Baby Girl, 2-9 , Wt 9'8", vx EREN position difficulty in delivering baby, due to obesity, vaccum assisted , head delivered Survey Technologist ; Dr Nettie Bernard Both tubes ligated & cut by modified kalyan technique both ovaries normal Surgeon: Ruby Taylor Solar Energy System Installer Helper: Cortez Amaya Anesthesiologist/CONTRACT DESIGN AGENT: Jt Tomlin Anesthesia: Spinal Specimens Removed: cord segment for cord gas. cord blood. placenta. portion of Lt Tube. portion of Rt Tube Estimated Blood Loss (mls): 500 Drains, Volume Out (mls): 250 Fluid Volume Replaced (mls): 1,200 (iv ancef 2 gm )
[2019-08-09] MEDS ORDERED: ALBUTEROL SO4 8 GM HFA INHALER IH PRN (10:29)
[2019-08-09] MEDS ORDERED: IBUPROFEN 800 MG/8 ML IJ IVPB ONE (10:31)
--- NOTE | 2019-08-09 10:37 | PN ---
Delivery - Delivery Section: Repeat, Low Flap Transverse (procedure BTL also )Indication : 39.4 weeks, previousc/sx3,mutiparity, voluntory sterlization , morbid obesity) EBL (cc): 500 (urine out put 250 ml kanchan color ) Delivery, Single - Stages of Labor Date of Delivery: 08/09/19 Time of Delivery: 09:02 Date Placenta Delivered: 08/09/19 Time Placenta Delivered: 09:03 Placenta: Yes: Manual Removal, Uterine Exploration - Condition of Phototypesetting Equipment Monitor/Industrial Technician Present: Yes Name: Noemí Sheffield Gender: Female Weight: 9 lb 8 oz Position: Left, OA Total Hours ROM (Hrs/Mins): 4 min - 1 Minute Total Score: 2 5 Minutes Total Score: 9 - Feeding Plan Initial Plan: Elected not to breastfeed exclusively throughout hospitalization Remarks - Remarks Remarks: 28 yrs [id number] , previousc/s x3 , requests for voluntary sterlization gbs neg bmi 42 .1 pnc at [address] [place] [address] intraop difficulty encountered , delivering baby head , vaccum assist ( Mity Vac ) deilvery of head was done from jose de jesus position 2 gm iv ancef intraop given . post op pt stable
[2019-08-09] MEDS: IBUPROFEN 800 MG/8 ML IJ IVPB PRN ×2 (11:00→21:30)
[2019-08-09] MEDS: ACETAMINOPHEN 325 MG TABLET (FP) PO PRN (14:13)
[2019-08-09] MEDS: CEFAZOLIN 1 GM/D5W 1 GM/50 ML BAG IVPB SCH ×2 (16:00→23:57)
[2019-08-10] MEDS: SIMETHICONE 80 MG TAB.CHEW (FP) PO PRN ×2 (05:08→13:00)
[2019-08-10] MEDS: ACETAMINOPHEN 325 MG TABLET (FP) PO PRN ×3 (05:08→21:20)
[2019-08-10] MEDS: IBUPROFEN 600 MG TABLET (FP) PO PRN ×3 (05:13→18:03)
[2019-08-10] MEDS: oxyCODONE HCL 5 MG TABLET PO PRN ×3 (07:22→21:18)
[2019-08-10] MEDS: CEFAZOLIN 1 GM/D5W 1 GM/50 ML BAG IVPB SCH (07:23)
--- NOTE | 2019-08-10 07:59 | PN ---
Post Progress Note - Subjective Subjective: Patient reports some breakthrough pain and encouraged to request pain control medication. Post Day: 1 Type of Delivery: Repeat C/S Vital Signs: Vital Signs Temperature 98 F 08/10/19 06:00 Pulse Rate 93 H 08/10/19 06:00 Respiratory Rate 18 08/10/19 06:00 Blood Pressure 126/80 08/10/19 06:00 O2 Sat by Pulse Oximetry (%) 100 08/09/19 11:00 Breast Exam: Yes: Other (deferred) Uterus: Yes: Fundus Firm Incision: Yes: [place] intact (no evidence of infection nor complication) Abdomen/GI: Yes: Abdomen soft Lochia, amount: Moderate Extremities: Yes: Calves non-tender Activity: Ambulating Assessment/Plan POD # 1 in stable condition with break through pain -Continue inpatient care -Encourage to request pain meds PRN -Anticipate D/C home on POD # 3
[2019-08-10] MEDS ORDERED: oxyCODONE HCL 5 MG TABLET PO PRN (08:00)
[2019-08-10 08:21] LABS: EOS % 1.2 % (0-4.5); HEMATOCRIT 27.4 % (32.4-45.2); HEMOGLOBIN 8.5 GM/dL (10.7-15.3); LYMPH % 19.5 % (8-40); MCH 21.1 pg (25.7-33.7); MEAN CELL VOLUME 68.1 fl (80-96); MEAN PLT VOLUME 7.6 fl (7.5-11.1); MONO % 7.8 % (3.8-10.2); NEUT % 70.5 % (42.8-82.8); PLATELET COUNT 253 K/MM3 (134-434); RBC 4.03 M/mm3 (3.60-5.2); RDW 19.9 % (11.6-15.6); WHITE BLOOD COUNT 8.8 K/mm3 (4.0-10.0)
--- NOTE | 2019-08-10 08:28 | PN ---
Progress Note (short form) - Note Progress Note: Anesthesia postop note 28 y/o F s/p spinal anesthesia/duramorph for section POD#1 vss, aaox3, pain well controlled, sensory motor intact distally No anesthesia complications.
[2019-08-10] MEDS ORDERED: BISACODYL 10 MG SUPP.RECT RC PRN (09:56)
[2019-08-10] MEDS: PRENATAL VITAMINS W/ FOLIC ACID TABLET (FP) PO SCH (10:45)
[2019-08-10] MEDS: ENOXAPARIN NA (PORCINE) 40 MG/0.4 ML DISP.SYRIN SQ SCH (10:45)
--- NOTE | 2019-08-10 11:58 | DS ---
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-BID CLERK Vital Signs: Vital Signs Temperature 98.1 F 08/10/19 07:15 Pulse Rate 85 08/10/19 07:15 Respiratory Rate 18 08/10/19 08:00 Blood Pressure 124/85 08/10/19 07:15 O2 Sat by Pulse Oximetry (%) 100 08/09/19 11:00 Selected Entries 08/12/19 10:00 Temperature 98.0 F Pulse Rate 90 Blood Pressure 130/82 Constitutional: Yes: Well Nourished, Obese, Other (no c/o dizziness) Eyes: Yes: WNL HENT: Yes: WNL Neck: Yes: WNL Cardiovascular: Yes: WNL Respiratory: Yes: WNL Gastrointestinal: Yes: WNL, Normal Bowel Sounds, Soft, Abdomen, Obese ...Rectal Exam: Yes: WNL Renal/: Yes: WNL, Other (voiding without difficulty). No: CVA Tenderness - Left, CVA Tenderness - Right ....Post : Yes: Uterus firm, Uterus non-tender, Moderate lochia rubra Breast(s): Yes: WNL (soft, not engorged . breast & bottle feeding) Musculoskeletal: Yes: WNL Extremities: Yes: WNL. No: Calf Tenderness Edema: LLE: 1+, RLE: 1+ Integumentary: Yes: WNL Wound/Incision: Yes: [place] Intact, Open to air, Other (pt will rtc for teodoro removal). No: Draining, Reddened, Bleeding, Excoriated Neurological: Yes: WNL, Alert, Oriented ...Motor Strength: WNL Psychiatric: Yes: WNL, Alert, Oriented, Other (pt declined to see psychiatrist in the hosp , just concerned about baby being in nicu) Labs: CBC, BMP 08/10/19 07:40 Laboratory Tests 08/12/19 06:45 WBC 11.3 H RBC 3.80 Hgb 8.2 L Hct 26.2 L Plt Count 275 Delivery - Delivery Section: Repeat, Low Flap Transverse (procedure BTL also )Indication : 39.4 weeks, previousc/sx3,mutiparity, voluntory sterlization , morbid obesity) Type of Anesthesia: Spinal Episiotomy/Laceration: None EBL (cc): 500 (urine out put 250 ml kanchan color ) Delivery, Single - Stages of Labor Date of Delivery: 08/09/19 Time of Delivery: 09:02 Time Placenta Delivered: 09:03 Placenta: Yes: Manual Removal, Uterine Exploration - Condition of Infant Strip Catcher/Assembly Machine Tool Setter Present: Yes Name: Noemí Sheffield Gender: Female Weight: 9 lb 8 oz Position: Left, OA Total Hours ROM (Hrs/Mins): 4 min - 1 Minute Total Score: 2 5 Minutes Total Score: 9 - [place] Feeding Plan Initial Plan: Elected not to breastfeed exclusively throughout hospitalization Remarks - Remarks Remarks: 28 yrs [id number] , previousc/s x3 , requests for voluntary sterlization gbs neg bmi 42 .1 pnc at , [facility] intraop difficulty encountered , delivering baby head , vaccum assist ( Mity Vac ) deilvery of head was done from jose de jesus position 2 gm iv ancef intraop given . post op pt stable post op course uneventful she is instructed about pp,post op care anemia is counselled pain management discussed , she requested 800 mg po motrin , that works better for her i warned her about gastritis & bleeding problem . pt wasdischarged by Dr Castorena on 08/12/19 Path report noted : segment of Rt & Lt tube placenta luz, trivascular cord Discharge Summary Problems reviewed: Yes Reason For Visit: SCHEDULED & BTL Current Active Problems Admission for tubal ligation (Acute) Delivery by (planned) section occurring after 37 completed weeks of gestation but before 39 completed weeks gestation due to (spontaneous) onset of labor, with mention of complication (Acute) Multiparity (Acute) with 39 completed weeks gestation (Acute) Procedures: Principal: Repeat LFTC/Section & BTL Hospital Course: uneventful Health Concerns: anemia obesity Plan of Treatment: as directed po pnv & iron , & pain meds Goals: maternal & well being Condition: Stable - Instructions Diet, Activity, Other Instructions: Post Instructions DIET: Continue good diet high in protein, calcium, and iron rich foods. Drink at least eight (8) glasses of water daily in addition to other fluids. Regular diet MEDICATIONS: Continue vitamins and iron as previously directed. Motrin and Tylenol may be taken for minor discomfort. ACTIVITY: Mild to moderate exercise may be started in two (2) weeks. Take frequent rest periods. Resume normal activity after six (6) week check up. WOUND CARE OF OPERATIVE SITE: Continue use of perineal bottle until vaginal discharge stops. Keep area clean. Shower daily. Keep abdominal wound dry. Report any drainage or redness to physician. Tub baths, tampons and douches are not permitted for [address] Breast feeding & or Bottle feeding BREAST CARE: (For those that are not breast feeding): If engorgement occurs: Wear tight fitting bra. Take Tylenol or Motrin for pain. Apply cold packs (ice in bags to each breast ) FAMILY PLANNING: There are many control alternatives to pursue and they should be discussed at your first office visit. You may resume sexual activity after your six (6) week check up. (Remember, breast feeding is not a contraceptive) NEXT PHYSICIAN APPOINTMENT: Be certain to call for a one (1) week appointment, unless otherwise directed. RTC Wednesday08/15/19 for teodoro removal at [address] [place] [address] Call Clinic or got to Emergency Dept if you have any of the following: Heavy vaginal bleeding Painful urination Leg pain Unusual odor noted to vaginal bleeding High fever Red streaking noted on breast Referrals: Krystian Powers [Primary Care Provider] - Ruby Taylor MD [Staff Physician] - Disposition: HOME - Home Medications Comprehensive Discharge Medication List: Ambulatory Orders RX: Albuterol Sulfate [Albuterol Sulfate Hfa] 1 - 2 puff PO Q4H PRN 07/20/19 RX: Vitamins (Sjr) - 1 tab PO DAILY 07/20/19 RX: Acetaminophen [Tylenol .Regular Strength -] 500 mg PO Q4H PRN #30 tablet RX: Acetaminophen [Tylenol .Regular Strength -] 650 mg PO Q4H PRN tablet RX: Albuterol Sulfate Inhaler - [Ventolin HFA Inhaler -] 2 puff IH Q4H PRN inhaler 08/10/19 RX: Ferrous Sulfate [Feosol] 325 mg PO BID tab 08/10/19 RX: Ibuprofen [Motrin -] 800 mg PO QID PRN #30 tablet 08/10/19 RX: Vitamins (Sjr) - 1 tab PO DAILY tablet 08/10/19 RX: Sennosides/Docusate Sodium [Pericolace -] 2 tablet PO HS PRN #30 tablet Prescription Drug Monitoring Program (I-STOP) results: I-STOP reviewed and no issues identified
[2019-08-10] MEDS: FERROUS SO4 325 MG TABLET (FP) PO SCH (21:21)
[2019-08-10] MEDS: SENNOSIDES/DOCUSATE COMBO (SENNA PLUS) TABLET (UD) PO PRN (21:21)
[2019-08-11] MEDS: oxyCODONE HCL 5 MG TABLET PO PRN ×4 (01:19→19:37)
[2019-08-11] MEDS: SIMETHICONE 80 MG TAB.CHEW (FP) PO PRN ×3 (01:19→19:35)
[2019-08-11] MEDS: IBUPROFEN 600 MG TABLET (FP) PO PRN ×4 (01:20→19:36)
[2019-08-11] MEDS ORDERED: oxyCODONE HCL 5 MG TABLET PO PRN (05:00)
--- NOTE | 2019-08-11 07:58 | PN ---
Progress Note (short form) - Note Progress Note: pod 2 , doing well, no c/o , voids ok , passing gas , no dizziness CBC, BMP 08/10/19 07:40 Last Vital Signs Temp Pulse Resp BP Pulse Ox 98 F 85 18 133/84 100 08/10/19 22:00 08/10/19 22:00 08/10/19 22:00 08/10/19 22:00 08/09/19 11:00 abdomen soft, no distension, no cva uterus firm, non tender incision dry, clean no calf tenderness lochia mild plan ambulate , cbc in am iron ,vit
[2019-08-11] MEDS: ENOXAPARIN NA (PORCINE) 40 MG/0.4 ML DISP.SYRIN SQ SCH (10:31)
[2019-08-11] MEDS: PRENATAL VITAMINS W/ FOLIC ACID TABLET (FP) PO SCH (10:31)
[2019-08-11] MEDS: FERROUS SO4 325 MG TABLET (FP) PO SCH ×2 (10:31→22:07)
[2019-08-11] MEDS: SENNOSIDES/DOCUSATE COMBO (SENNA PLUS) TABLET (UD) PO PRN (19:37)
[2019-08-12] MEDS: oxyCODONE HCL 5 MG TABLET PO PRN (03:07)
[2019-08-12] MEDS: SIMETHICONE 80 MG TAB.CHEW (FP) PO PRN (03:07)
[2019-08-12] MEDS: IBUPROFEN 600 MG TABLET (FP) PO PRN ×2 (03:08→11:02)
[2019-08-12] MEDS: ACETAMINOPHEN 325 MG TABLET (FP) PO PRN ×2 (03:08→11:02)
[2019-08-12] MEDS: OXYTOCIN 20 UNITS in 0.9% NS 20 UNIT/1,000 ML INFUS.BAG IV SCH ×2 (03:23→03:25)
--- NOTE | 2019-08-12 06:50 | PN ---
Post Progress Note Post Day: 3 Type of Delivery: Repeat C/S Vital Signs: Vital Signs Temperature 98.2 F 08/11/19 22:00 Pulse Rate 94 H 08/11/19 22:00 Respiratory Rate 20 08/11/19 22:00 Blood Pressure 135/85 08/11/19 22:00 O2 Sat by Pulse Oximetry (%) 100 08/09/19 11:00 Uterus: Yes: Fundus below umbilicus Incision: Yes: Dressing dry and intact Abdomen/GI: Yes: Abdomen soft, Tolerating PO Lochia: Yes: Rubra Lochia, amount: Small Extremities: Yes: Calves non-tender Activity: Ambulating - Labs Labs: CBC WBC 8.8 K/mm3 (4.0-10.0) 08/10/19 07:40 RBC 4.03 M/mm3 (3.60-5.2) 08/10/19 07:40 Hgb 8.5 GM/dL (10.7-15.3) L 08/10/19 07:40 Hct 27.4 % (32.4-45.2) L 08/10/19 07:40 MCV 68.1 fl (80-96) L 08/10/19 07:40 MCH 21.1 pg (25.7-33.7) L 08/10/19 07:40 MCHC 31.0 g/dl (32.0-36.0) L 08/10/19 07:40 RDW 19.9 % (11.6-15.6) H 08/10/19 07:40 Plt Count 253 K/MM3 (134-434) D 08/10/19 07:40 MPV 7.6 fl (7.5-11.1) 08/10/19 07:40 Absolute Neuts (auto) 6.2 K/mm3 (1.5-8.0) 08/10/19 07:40 Neutrophils % 70.5 % (42.8-82.8) 08/10/19 07:40 Lymphocytes % 19.5 % (8-40) D 08/10/19 07:40 Monocytes % 7.8 % (3.8-10.2) 08/10/19 07:40 Eosinophils % 1.2 % (0-4.5) 08/10/19 07:40 Basophils % 1.0 % (0-2.0) 08/10/19 07:40 Nucleated RBC % 0 % (0-0) 08/10/19 07:40 Assessment/Plan 28yo s/p RLTCS#4, and BTL, POD#3 Routine PP care PO Pain control Labs reviewed Anticipate d/c to home by POD#4 Corine Castorena MD
[2019-08-12 07:37] LABS: EOS % 1.8 % (0-4.5); HEMATOCRIT 26.2 % (32.4-45.2); HEMOGLOBIN 8.2 GM/dL (10.7-15.3); MCH 21.6 pg (25.7-33.7); MCHC 31.3 g/dl (32.0-36.0); MEAN CELL VOLUME 68.8 fl (80-96); MEAN PLT VOLUME 7.4 fl (7.5-11.1); MONO % 6.5 % (3.8-10.2); NEUT % 64.7 % (42.8-82.8); PLATELET COUNT 275 K/MM3 (134-434); RDW 20.8 % (11.6-15.6); WHITE BLOOD COUNT 11.3 K/mm3 (4.0-10.0)
[2019-08-12] MEDS: PRENATAL VITAMINS W/ FOLIC ACID TABLET (FP) PO SCH (11:02)
[2019-08-12] MEDS: ENOXAPARIN NA (PORCINE) 40 MG/0.4 ML DISP.SYRIN SQ SCH (11:03)
[2019-08-12] MEDS: FERROUS SO4 325 MG TABLET (FP) PO SCH (11:39)
[2019-08-12 12:00] VITALS: BP 130/82; PULSE 90; TEMP 98
[2019-08-12 13:35] LABS: ANISOCYTOSIS 2+; MACROCYTOSIS 0; PLATELET ESTIMATE NORMAL
--- NOTE | 2019-08-14 15:53 | OP ---
DATE OF OPERATION: DATE OF DICTATION: 08/09/2019 PREOPERATIVE DIAGNOSIS: At 39.4 weeks, previous sections x3, multiparity, voluntary sterilization, morbid obesity. OPERATION DONE: Repeat low transverse section, bilateral tubal ligation. SURGEON: Michel Taylor MD A&P MECHANIC: Cortez Amaya MD ANESTHESIOLOGIST: Jt Tomlin MD ANESTHESIA: Spinal. FINDINGS: This is a 28-year-old 4, para 3-0-0-3 previous 3 sections, and her BMI is 42, and she requests a voluntary sterilization. Patient not in labor. DESCRIPTION OF PROCEDURE: Abdomen was shaved, prepped. Hoover catheter was placed. She was taken to the operating room table and then spinal anesthesia was given. She was placed in supine position. Pfannenstiel incision was made through previous scar in skin, subcutaneous tissue. Anterior rectus sheath was incised transversely. Bleeding points were clamped and cauterized. Rectus muscle was from the rectus sheath. Parietal peritoneum was opened vertically and then the lower flap bladder peritoneum was identified. It was incised transversely. The muscles were transected to have enough space for delivering the baby. Then lower uterine segment was incised transversely, and the amniotic fluid was clear. Baby was delivered at 9:02 AM. It was difficult in delivering the baby out, so the Mityvac vacuum cup was applied on the baby's head. With 2nd pull, the head was delivered and then the shoulders and the rest of the body was delivered. Baby's position was EREN. Cord was clamped, and baby was handed over to the blend plant operator. Baby's Apgars were 2, 9. Subsequently, the baby's weight was 9 pounds 8 ounces. Cord blood was collected and also cord segment was cut for the cord blood gases. Placenta was removed completely with the membranes and then uterine incision was held with T clamps. Uterine cavity was cleaned with a lap pad and then uterine incision was closed in 2 layers. First layer was a continuous locking with a Biosyn single suture. Second layer was a continuous intermittent locking with a Biosyn single suture. Hemostasis was verified and then both the tubes and ovaries were inspected. They were normal. First the left tube in the ampullary portion of the tube in the lateral avascular area was doubly ligated with a 2-0 plain catgut and suture. Above the ligature, portion of the tube was cut and sent for pathology examination. Endosalpinx was cauterized. Hemostasis was verified. Then the same procedure was done on the right tube. Mid ampullary portion of the tube was doubly ligated with a 2-0 plain catgut. About the ligature, tube was cut, and the endosalpinx was cauterized, and hemostasis was checked. Both the side ovaries were normal. Hemostasis verified once again in the incision and the tube. Irrigation was done. Sponge, instrument, needle count was correct, and the closure at the abdomen was done. Parietal peritoneum was closed with a Vicryl suture. Muscles were approximated together with a Vicryl 0 interrupted suture. Hemostasis checked underneath the rectus sheath flaps then the anterior rectus sheath was closed with a Vicryl 0 continuous suture. Continuous sutures were taken. The skin was mobilized from underneath the scar and then interrupted sutures were taken in the subcutaneous tissue with the Vicryl suture. Hemostasis checked, and the subcutaneous tissue and skin was approximated with the ethel. Patient tolerated the procedure well. Pressure dressing was given, and blood clots were removed from the vagina. She was transferred to the recovery room in stable condition. Estimated blood loss was 400 mL. Urine output was 250 mL. It was kanchan color. She received 2 g of IV Ancef prior to the incision. MICHEL TAYLOR M.D. [id number] MTDD
--- NOTE | 2019-08-14 17:29 | PATH ---
Surgical Pathology Report Patient Name: CUCA MORALES [facility]. Rec. 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 Specimen(s) Received A: PLACENTA B: LEFT FALLOPIAN TUBE C: RIGHT FALLOPIAN TUBE Clinical History at 39.4 weeks, history of asthma, history of ASCUS x3 Final Diagnosis A. PLACENTA: THIRD TRIMESTER PLACENTA. TRIVASCULAR CORD. MEMBRANES WITH NO DIAGNOSTIC ABNORMALITIES. B. LEFT SEGMENT OF FALLOPIAN TUBE, RESECTION: COMPLETE CROSS SECTION OF THE FALLOPIAN TUBE LUMEN IDENTIFIED. C. RIGHT SEGMENT OF FALLOPIAN TUBE, RESECTION: COMPLETE CROSS SECTION OF THE FALLOPIAN TUBE LUMEN IDENTIFIED. Electronically Signed Isaiah Natarajan M.D. Gross Description A. The specimen is received fresh labeled placenta and is a 710 gram, 18.5 x 16.0 x 2.3 cm. placenta with attached membranes and umbilical cord. The attached membranes are rios, translucent with focal opacities and insert marginally. The umbilical cord measures 29 cm. in length and averages 1 cm. in diameter. The cord inserts eccentrically, 3 cm. to the nearest margin. No true knots or strictures are identified. Cut surface of the umbilical cord reveals 3 vessels. The surface is payne blue with moderate fibrin deposition and appropriate caliber vessels. The maternal surface is red-brown with focal defects. Sectioning reveals red-brown, spongy parenchyma. No lesions are identified. Wing Mailer Machine Operator sections are submitted in three cassettes as follows: 1- membrane rolls and umbilical cord; 2-3- full thickness sections of placenta. B. received in formalin labeled "left segment of fallopian tube," is a 1.0 cm in length portion of fallopian tube. No fimbria are present. The outer surface is rios-pink and smooth. Sectioning reveals an unremarkable lumen. Wing Mailer Machine Operator sections are submitted in one cassette. C. Received in formalin labeled "right segment of fallopian tube," is a 1.0 cm in length portion of fallopian tube. No fimbria are present. The outer surface is rios-pink and smooth. Sectioning reveals an unremarkable lumen. Wing Mailer Machine Operator sections are submitted in one cassette. 08/10/2019 saudi08/10/2019
== END 2019-08-12 11:52 | disposition home or self-care (01) | DRG 540 ==
LOC: JLDR 05:30 → J3W 11:30
PROVIDERS: ADMIT Obstetrics & Gynecology; ATTEND Obstetrics & Gynecology
PROC: 10D00Z1 Extraction of Products of Conception, Low, Open Approach (ICD-10-PCS; principal; 2019-08-09)
PROC: 0UB70ZZ Excision of Bilateral Fallopian Tubes, Open Approach (ICD-10-PCS; 2019-08-09)
DX: O34.211 Maternal care for low transverse scar from previous cesarean delivery (principal); N85.8 Other specified noninflammatory disorders of uterus; O99.214 Obesity complicating childbirth; E66.01 Morbid (severe) obesity due to excess calories; O99.02 Anemia complicating childbirth; D64.9 Anemia, unspecified; Z3A.39 39 weeks gestation of pregnancy; Z30.2 Encounter for sterilization; Z37.0 Single live birth
CPT/HCPCS: 36415; 36600; 82803; 85025; 86850; 86900; 86901; 86922; 88302-TC; 88307-TC; 94010

== ENCOUNTER 2020-06-15 14:56 | Emergency (ER) | payer OTHER ==
[2020-06-15 15:12] VITALS: BMI 40.3
[2020-06-15] MEDS ORDERED: diazePAM 2 MG TABLET PO ONE (15:39)
--- NOTE | 2020-06-15 15:42 | PDOC ---
History of Present Illness - General Chief Complaint: Palpitations Stated Complaint: PALPITATIONS Time Seen by Provider: 06/15/20 15:15 History Source: Patient Exam Limitations: Clinical Condition - History of Present Illness Initial Comments: 06/15/20 15:37 Patient with past medical history of asthma presented with complaint of sudden onset of palpitation and feeling of tingling sensation in bilateral upper extremities which started an hour ago while doing some project for her . Patient talking hysterically crying and report family [place] sick in [place]. Denies nausea, vomiting, shortness of breath, abdominal pain, fever, chills, cough. Denies history of anxiety or panic attacks. Denies family history of cardiomyopathy. Patient has not taken anything for symptom. Denies any other symptoms Is this a multiple visit Asthma Patient?: No Timing/Duration: 1 hour Past History - Medical History Allergies/Adverse Reactions: Allergies Allergy/AdvReac Type Severity Reaction Status Date / Time peanut Allergy Severe Difficulty Verified 06/15/20 15:05 Breathing No Known Drug Allergies Allergy Verified 06/15/20 15:05 Home Medications: Ambulatory Orders Albuterol Sulfate [Albuterol Sulfate Hfa] 1 - 2 puff PO Q4H PRN 07/20/19 hydrOXYzine PAMOATE [Vistaril -] 25 mg PO Q8H PRN #16 capsule 06/15/20 Asthma: Yes (last attack 1 month ago) Cancer: No Cardiac Disorders: No COPD: No Diabetes: No HTN: No Seizures: No Thyroid Disease: No - Surgical History Abdominal Surgery: Yes (C/S X4, tubal ligation Jul 2019) - Reproductive History Is Patient Now?: No - Immunization History Td Vaccination: Yes TDAP Vaccination: Yes Immunization Up to Date: Yes - Psycho-Social/Smoking History Smoking Status: No Smoking History: Never smoked Years of Tobacco Use: 0 Have you smoked in the past 12 months: No Number of Cigarettes Smoked Daily: 0 Cigars Per Day: 0 - Substance Abuse Hx (Audit-C & DAST Scrn) How often the patient has a drink containing alcohol: Never Score: In Men: 4 or > Positive; In Women: 3 or > Positive: 0 Screen Result (Pos requires Nsg. Audit-10AR): Negative In the last yr the pt used illegal drug/Rx for NonMed reason: No Score: Yes response is considered Positive: 0 Screen Result (Positive result requires Nsg. DAST-10): Negative Review of Systems - Review of Systems Able to Perform ROS?: Yes Is the patient limited Lithuanian proficient: No Constitutional: No: Chills, Fever, Malaise HEENTM: No: Symptoms Reported, See HPI, Eye Pain, Blurred Vision, Tearing, Recent change in vision, Double Vision, Cataracts, Ear Pain, Ocular Prothesis, Ear Discharge, Nose Pain, Nose Congestion, Tinnitus, Nose Bleeding, Hearing Loss, Throat Pain, Throat Swelling, Mouth Pain, Dental Problems, Difficulty Swallowing, Mouth Swelling, Other Respiratory: No: Symptoms reported, See HPI, Cough, Orthopnea, Shortness of Breath, SOB with Exertion, SOB at Rest, Stridor, Wheezing, Productive cough, Hemoptysis, Other Cardiac (ROS): Yes: Symptoms Reported, See HPI, Palpitations. No: Chest Pain, Edema, Irregular Heart Rate, Lightheadedness, Syncope, Chest Tightness, Other ABD/GI: No: Symptoms Reported, See HPI, Abdominal Distended, Abd. Pain w/ defecation, Blood Streaked Bowels, Constipated, Diarrhea, Difficulty Swallowing, Nausea, Poor Appetite, Poor Fluid Intake, Rectal Bleeding, Vomiting, Indigestion, Abdominal cramping, Tarry Stools, Other Musculoskeletal: No: Symptoms Reported Integumentary: No: Symptoms Reported Neurological: No: Symptoms reported, Headache, Weakness All Other Systems: Reviewed and Negative *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 - Vital Signs Last Vital Signs Temp Pulse Resp BP Pulse Ox 98.5 F 95 H 18 121/79 96 06/15/20 15:08 06/15/20 15:08 06/15/20 15:08 06/15/20 15:08 06/15/20 15:08 - 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 06/15/20 15:41 GENERAL: Well developed, well nourished. Awake and alert. No acute distress. HEENT: Normocephalic, atraumatic. PERRLA, EOMI. No conjunctival pallor. Sclera are non-icteric. Moist mucous membranes. Oropharynx is clear. NECK: Supple. Full ROM. CARDIOVASCULAR: Regular rate and rhythm. No murmurs, rubs, or gallops. Distal pulses are 2+ and symmetric. PULMONARY: No evidence of respiratory distress. Lungs clear to auscultation bilaterally. No wheezing, rales or rhonchi. ABDOMINAL: Soft. Non-tender. Non-distended. No rebound or guarding. No organomegaly. Normoactive bowel sounds. MUSCULOSKELETAL Normal range of motion at all joints. EXTREMITIES: No cyanosis. No clubbing. No edema. No calf tenderness. SKIN: Warm and dry. Normal capillary refill. No rashes. No jaundice. NEUROLOGICAL: Alert, awake, appropriate. Gait is normal without ataxia. PSYCHIATRIC: Cooperative. Good eye contact. Appropriate mood General Appearance: Yes: Nourished, Appropriately Dressed. No: Apparent Distress ED Treatment Course - LABORATORY CBC & Chemistry Diagram: 06/15/20 15:35 06/15/20 15:35 - RADIOLOGY Radiology Studies Ordered: Category Date Time Status CHEST PA & LAT [RAD] Stat Radiology 06/15/20 15:22 Ordered Medical Decision Making - Medical Decision Making 06/15/20 15:40 Patient with past medical history of asthma presented with complaint of sudden onset of palpitation and feeling of tingling sensation in bilateral upper e xtremities which started an hour ago while doing some project for her . Patient talking hysterically crying and report family [place] sick [place]. Denies nausea, vomiting, shortness of breath, abdominal pain, fever, chills, cough. Denies history of anxiety or panic attacks. Denies family history of cardiomyopathy. Patient has not taken anything for symptom. Denies any other symptoms Clinical exam unremarkable with normal cardio and lung exam. Patient in no acute respiratory distress. EKG done in triage shows normal sinus rhythm. Patient afebrile. Patient symptoms likely anxiety versus less likely cardiogenic etiology. CBC, chemistry and cardiac profile lab ordered to rule out cardiogenic etiology. Chest x-ray ordered to rule out acute chest pathology. Valium 2 mg p.o. ordered for anxiety. Reassess after lab and imaging results 06/15/20 16:22 CBC, chemistry and cardiac profile lab unremarkable. Checks x-ray shows no acute abnormality. Patient reported improvement in symptoms. Patient symptoms likely anxiety related and stable for discharge on Vistaril as needed for anxiety with PCP and cardiology follow-up. Patient clinically stable and asymptomatic now for discharge Discharge - Discharge Information Problems reviewed: Yes Clinical Impression/Diagnosis: Palpitations, Anxiety Condition: Improved Disposition: HOME - Admission No - Additional Discharge Information Prescriptions: hydrOXYzine PAMOATE [Vistaril -] 25 mg PO Q8H PRN #16 capsule PRN Reason: Anxiety - Follow up/Referral Referrals: Krystian Powers [Primary Care Provider] - Ajay Card MD [Staff Physician] - Rui Gregg MD [Staff Physician] - - Patient Discharge Instructions Patient Printed Discharge Instructions: DI for Anxiety -- Adult Additional Instructions: Your EKG was normal. Your blood work and checks x-ray was normal as well. Your symptoms likely caused by anxiety attack. Take prescribed medication as needed for anxiety. 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
[2020-06-15 15:43] LABS: EOS % 1.5 % (0-4.5); HEMATOCRIT 37.2 % (32.4-45.2); HEMOGLOBIN 11.9 GM/dL (10.7-15.3); LYMPH % 41.8 % (8-40); MCH 24.4 pg (25.7-33.7); MEAN CELL VOLUME 76.5 fl (80-96); MEAN PLT VOLUME 8.2 fl (7.5-11.1); MONO % 7.2 % (3.8-10.2); NEUT % 48.5 % (42.8-82.8); PLATELET COUNT 395 K/MM3 (134-434); RBC 4.87 M/mm3 (3.60-5.2); RDW 16.5 % (11.6-15.6); WHITE BLOOD COUNT 7.5 K/mm3 (4.0-10.0)
[2020-06-15] MEDS ORDERED: diazePAM 2 MG TABLET ONE (15:47)
[2020-06-15 15:56] LABS: ALBUMIN 3.6 g/dl (3.4-5.0); ALK PHOS 79 U/L (45-117); ANION GAP 6 MMOL/L (8-16); BILIRUBIN,TOTAL 0.3 mg/dL (0.2-1); CALCIUM 8.6 mg/dL (8.5-10.1); CHLORIDE 106 mmol/L (98-107); CO2 27 mmol/L (21-32); GLUCOSE,RANDOM 88 mg/dL (74-106); MAGNESIUM 2.1 mg/dL (1.8-2.4); POTASSIUM 4.4 mmol/L (3.5-5.1); SGOT/AST 19 U/L (15-37); SGPT/ALT 18 U/L (13-61); SODIUM 139 mmol/L (136-145); TOT PROT 7.5 g/dl (6.4-8.2)
[2020-06-15 16:29] VITALS: BP 118/78; PULSE 81; TEMP 98.1
--- NOTE | 2020-06-17 21:51 | EKG ---
Test Reason : Blood Pressure : / mmHG Vent. Rate : 087 BPM Atrial Rate : 087 BPM P-R Int : 144 ms QRS Dur : 082 ms QT Int : 372 ms P-R-T Axes : 047 015 031 degrees QTc Int : 447 ms NORMAL SINUS RHYTHM NORMAL ECG WHEN COMPARED WITH ECG OF 05-APR-2017 10:01, NO SIGNIFICANT CHANGE WAS FOUND Confirmed by DARRELL BEST MD ([id number]) on 06/17/2020 9:50:54 PM Referred By: Confirmed By:DARRELL BEST MD
== END 2020-06-15 16:29 | disposition home or self-care (01) ==
LOC: JER 14:56
DX: R00.2 Palpitations (principal); F41.9 Anxiety disorder, unspecified
CPT/HCPCS: 36415; 71046-TC-FY; 80053; 82550; 82553; 83735; 84484; 84703; 85025; 93005; 93010; 99285-25

== ENCOUNTER 2020-12-21 17:18 | Emergency (ER) | payer OTHER ==
[2020-12-21 17:26] VITALS: BP 105/78; PULSE 84; TEMP 98; BMI 36.6
[2020-12-21] MEDS ORDERED: LIDOCAINE 5% TOPICAL PATCH TP ONE (17:48)
[2020-12-21] MEDS ORDERED: CYCLOBENZAPRINE HCL 10 MG TABLET (FP) PO ONE (17:48)
[2020-12-21] MEDS ORDERED: LIDOCAINE 5% TOPICAL PATCH ONE (17:58)
[2020-12-21] MEDS ORDERED: CYCLOBENZAPRINE HCL 10 MG TABLET (FP) ONE (17:58)
[2020-12-21 18:00] LABS: HCG,QUALITATIVE URINE Negative
[2020-12-21 18:28] LABS: EPI CELLS 10 /uL (0-25.1); HYALINE CASTS 0 /uL (0-3.1); URINE APPEARANCE CLEAR; URINE BACTERIA 299 /uL (0-1359); URINE BILIRUBIN NEGATIVE (NEGATIVE); URINE COLOR YELLOW; URINE GLUCOSE (UA) NEGATIVE (NEGATIVE); URINE KETONE NEGATIVE (NEGATIVE); URINE LEUK ESTERASE NEGATIVE (NEGATIVE); URINE NITRITE NEGATIVE (NEGATIVE); URINE PROTEIN 1+ (NEGATIVE); URINE RBC 21 /uL (0-23.9); URINE UROBILINOGEN 0.2 mg/dL (0.2-1.0); URINE WBC 6 /uL (0-25.8)
[2020-12-21] MEDS ORDERED: LIDOCAINE PATCH REMOVAL MC SCH (22:00)
== END 2020-12-21 18:52 | disposition home or self-care (01) ==
LOC: JERFT 17:18
DX: M54.5 Low back pain (principal)
CPT/HCPCS: 72100-TC-FY; 81003; 84703; 87086; 99285-25

== ENCOUNTER 2020-12-28 11:28 | Emergency (ER) | payer OTHER ==
[2020-12-28 11:44] VITALS: BP 156/92; PULSE 92; TEMP 98.5; BMI 41.1
[2020-12-28] MEDS ORDERED: ONDANSETRON 4 MG TABLET PO ONE (12:26)
[2020-12-28] MEDS ORDERED: SODIUM CHLORIDE 0.9% 1000 ML INFUS.BAG IV ONE (12:30)
[2020-12-28] MEDS ORDERED: MAG HYDROX/AL HYDROX/SIMETH 30 ML UNIT-DOSE CUP PO ONE (12:42)
[2020-12-28] MEDS ORDERED: ONDANSETRON 4 MG/2 ML VIAL ONE (12:49)
[2020-12-28 12:55] LABS: BASO % 1.4 % (0-2.0); EOS % 1.3 % (0-4.5); HEMATOCRIT 35.6 % (32.4-45.2); HEMOGLOBIN 11.7 GM/dL (10.7-15.3); LYMPH % 41.1 % (8-40); MCH 25.1 pg (25.7-33.7); MONO % 8.3 % (3.8-10.2); NEUT % 47.9 % (42.8-82.8); PLATELET COUNT 373 K/MM3 (134-434); RBC 4.69 M/mm3 (3.60-5.2); RDW 17.8 % (11.6-15.6); WHITE BLOOD COUNT 6.9 K/mm3 (4.0-10.0)
[2020-12-28] MEDS ORDERED: FAMOTIDINE 20 MG/50 ML IVPB 20 MG/50 ML MG IVPB ONE ×2 (12:55→12:57)
[2020-12-28 13:14] LABS: POTASSIUM 4.4 mmol/L (3.5-5.1)
[2020-12-28 13:16] LABS: CALCIUM 9.5 mg/dL (8.5-10.1)
[2020-12-28 13:17] LABS: ALBUMIN 3.6 g/dl (3.4-5.0)
[2020-12-28 13:20] LABS: CREATININE 0.7 mg/dL (0.55-1.3)
[2020-12-28 13:22] LABS: BILIRUBIN,TOTAL 0.3 mg/dL (0.2-1); TOT PROT 7.6 g/dl (6.4-8.2)
[2020-12-28 14:02] LABS: EPI CELLS 11 /uL (0-25.1); HYALINE CASTS 0 /uL (0-3.1); PH,URINE 7.5 (5.0-8.0); URINE APPEARANCE CLEAR; URINE BACTERIA 128 /uL (0-1359); URINE BILIRUBIN NEGATIVE (NEGATIVE); URINE COLOR YELLOW; URINE GLUCOSE (UA) NEGATIVE (NEGATIVE); URINE KETONE NEGATIVE (NEGATIVE); URINE LEUK ESTERASE NEGATIVE (NEGATIVE); URINE NITRITE NEGATIVE (NEGATIVE); URINE PROTEIN 1+ (NEGATIVE); URINE RBC 13 /uL (0-23.9); URINE UROBILINOGEN 0.2 mg/dL (0.2-1.0); URINE WBC 3 /uL (0-25.8)
[2020-12-28 14:26] LABS: URINE CRYSTALS NO SEEN /hpf
== END 2020-12-28 15:25 | disposition home or self-care (01) ==
LOC: JER 11:28
PROC: 3E033NZ Introduction of Analgesics, Hypnotics, Sedatives into Peripheral Vein, Percutaneous Approach (ICD-10-PCS; principal; 2020-12-28)
DX: R11.2 Nausea with vomiting, unspecified (principal); R10.13 Epigastric pain
CPT/HCPCS: 36415; 80053; 81003; 83690; 85025; 87086; 99285-25

== ENCOUNTER 2021-07-03 18:43 | Emergency (ER) | payer OTHER ==
[2021-07-03 19:00] VITALS: BP 126/89; PULSE 87; TEMP 97.3; BMI 38.2
[2021-07-03] MEDS ORDERED: ACETAMINOPHEN 500 MG TABLET (FP) PO ONE (19:54)
[2021-07-03] MEDS ORDERED: ACETAMINOPHEN 500 MG TABLET (FP) ONE (19:54)
[2021-07-03 20:17] LABS: EPI CELLS 21 /uL (0-25.1); HCG,QUALITATIVE URINE Negative; HYALINE CASTS 14 /uL (0-3.1); URINE APPEARANCE TURBID; URINE BACTERIA 2654 /uL (0-1359); URINE BILIRUBIN NEGATIVE (NEGATIVE); URINE COLOR YELLOW; URINE GLUCOSE (UA) NEGATIVE (NEGATIVE); URINE KETONE TRACE (NEGATIVE); URINE LEUK ESTERASE 3+ (NEGATIVE); URINE NITRITE NEGATIVE (NEGATIVE); URINE PROTEIN 3+ (NEGATIVE); URINE RBC 1760 /uL (0-23.9); URINE WBC 24867 /uL (0-25.8)
[2021-07-03] MEDS ORDERED: SULFAMETHOXAZOLE/TRIMETHOPRIM 800MG/160MG D.S. TABLET PO ONE (20:26)
[2021-07-03] MEDS ORDERED: SULFAMETHOXAZOLE/TRIMETHOPRIM 800MG/160MG D.S. TABLET ONE (20:28)
== END 2021-07-03 20:46 | disposition home or self-care (01) ==
LOC: JERFT 18:43
DX: N30.00 Acute cystitis without hematuria (principal)
CPT/HCPCS: 36415; 81003; 84703; 87086; 87186; 87491; 87591; 99283-25

== ENCOUNTER 2021-12-08 17:23 | Emergency (ER) | payer OTHER ==
[2021-12-08 17:40] VITALS: BP 115/70; PULSE 78; TEMP 98.6; BMI 26.6
[2021-12-08 19:17] LABS: EPI CELLS 16 /uL (0-25.1); HCG,QUALITATIVE URINE Negative; HYALINE CASTS 2 /uL (0-3.1); URINE APPEARANCE CLOUDY; URINE BACTERIA 295 /uL (0-1359); URINE BILIRUBIN NEGATIVE (NEGATIVE); URINE COLOR YELLOW; URINE GLUCOSE (UA) NEGATIVE (NEGATIVE); URINE KETONE NEGATIVE (NEGATIVE); URINE LEUK ESTERASE 2+ (NEGATIVE); URINE NITRITE NEGATIVE (NEGATIVE); URINE PROTEIN 1+ (NEGATIVE); URINE RBC 319 /uL (0-23.9); URINE UROBILINOGEN 0.2 mg/dL (0.2-1.0); URINE WBC 1944 /uL (0-25.8)
[2021-12-08] MEDS ORDERED: PHENAZOPYRIDINE HCL 100 MG TABLET (FP) PO ONE (19:21)
[2021-12-08] MEDS ORDERED: CEPHALEXIN MONOHYDRATE 500 MG CAPSULE (UD) PO ONE (19:49)
[2021-12-08] MEDS ORDERED: CEPHALEXIN MONOHYDRATE 500 MG CAPSULE (UD) ONE (20:24)
[2021-12-08] MEDS ORDERED: PHENAZOPYRIDINE HCL 100 MG TABLET (FP) ONE (20:24)
== END 2021-12-08 20:28 | disposition home or self-care (01) ==
LOC: JERFT 17:23 → JER 17:23 → JERFT 20:28
DX: N30.00 Acute cystitis without hematuria (principal)
CPT/HCPCS: 81003; 84703; 87086; 87186; 99283-25

== ENCOUNTER 2022-03-25 09:57 | Day surgery (SDC) | payer OTHER ==
[2022-03-25] MEDS ORDERED: FERRIC CARBOXYMALTOSE 750 MG in SODIUM CHLORIDE 250 ML IVPB ONE (10:30)
[2022-03-25 10:31] VITALS: TEMP 98
[2022-03-25 12:29] VITALS: BP 113/85; PULSE 70
== END 2022-03-25 12:29 | disposition home or self-care (01) ==
LOC: FINFUSION 09:57 → FM/S 09:58 → FINFUSION 12:29
PROVIDERS: ATTEND Family Medicine
PROC: 3E033GC Introduction of Other Therapeutic Substance into Peripheral Vein, Percutaneous Approach (ICD-10-PCS; principal; 2022-03-25)
DX: D50.9 Iron deficiency anemia, unspecified (principal)
CPT/HCPCS: 96365; J1439

== ENCOUNTER 2022-04-01 14:07 | Day surgery (SDC) | payer OTHER ==
[2022-04-01] MEDS ORDERED: FERRIC CARBOXYMALTOSE 750 MG in SODIUM CHLORIDE 250 ML IVPB ONE (15:00)
[2022-04-01 15:50] VITALS: BP 101/63; PULSE 71; TEMP 98.6
== END 2022-04-01 15:50 | disposition home or self-care (01) ==
LOC: FINFUSION 14:07 → FM/S 14:08 → FINFUSION 15:50
PROVIDERS: ATTEND Family Medicine
PROC: 3E033GC Introduction of Other Therapeutic Substance into Peripheral Vein, Percutaneous Approach (ICD-10-PCS; principal; 2022-04-01)
DX: D50.9 Iron deficiency anemia, unspecified (principal)
CPT/HCPCS: 96365; J1439

== ENCOUNTER 2023-02-17 14:02 | Emergency (ER) | payer OTHER ==
[2023-02-17 14:09] VITALS: BP 116/64; PULSE 108; RESP 18; BMI 29.9
[2023-02-17] MEDS ORDERED: CYCLOBENZAPRINE HCL 10 MG TABLET (FP) PO ONE (16:23)
[2023-02-17] MEDS ORDERED: ACETAMINOPHEN 500 MG TABLET (FP) PO ONE (16:23)
[2023-02-17] MEDS ORDERED: IBUPROFEN 600 MG TABLET (FP) PO ONE ×2 (16:23→16:25)
[2023-02-17] MEDS ORDERED: ACETAMINOPHEN 500 MG TABLET (FP) ONE (16:25)
[2023-02-17] MEDS ORDERED: CYCLOBENZAPRINE HCL 10 MG TABLET (FP) ONE (16:25)
== END 2023-02-17 17:43 | disposition home or self-care (01) ==
LOC: JER 14:02 → JERFT 14:02
DX: R10.31 Right lower quadrant pain (principal); M54.9 Dorsalgia, unspecified; H57.11 Ocular pain, right eye; Y04.2XXA Assault by strike against or bumped into by another person, initial encounter
CPT/HCPCS: 76882-TC-RT-FY; 99284-25

== ENCOUNTER 2023-04-29 19:27 | Emergency (ER) | payer OTHER ==
[2023-04-29 19:42] VITALS: BP 127/86; PULSE 79; RESP 17; TEMP 98.2; BMI 26.9
[2023-04-29 21:03] LABS: EPI CELLS 24 /uL (0-25.1); HYALINE CASTS 1 /uL (0-3.1); URINE APPEARANCE CLEAR; URINE BACTERIA 3595 /uL (0-1359); URINE BILIRUBIN NEGATIVE (NEGATIVE); URINE COLOR YELLOW; URINE GLUCOSE (UA) NEGATIVE (NEGATIVE); URINE KETONE TRACE (NEGATIVE); URINE LEUK ESTERASE 2+ (NEGATIVE); URINE NITRITE NEGATIVE (NEGATIVE); URINE PROTEIN TRACE (NEGATIVE); URINE RBC 372 /uL (0-23.9); URINE WBC 244 /uL (0-25.8)
[2023-04-29 21:16] LABS: HCG,QUALITATIVE URINE NEGATIVE
[2023-04-29] MEDS ORDERED: LIDOCAINE HCL/PF 1% SDV 5ML VIAL ONE (21:19)
== END 2023-04-29 21:26 | disposition home or self-care (01) ==
LOC: JERFT 19:27 → JER 19:27 → JERFT 21:26
DX: N30.00 Acute cystitis without hematuria (principal)
CPT/HCPCS: 36415; 81003; 84703; 87086; 87186; 87491; 87591; 99284-25

== ENCOUNTER 2023-07-25 23:30 | Emergency (ER) | payer OTHER ==
[2023-07-25 23:39] VITALS: RESP 18; BMI 26.8
[2023-07-26 03:00] VITALS: BP 126/88; PULSE 96
[2023-07-26 03:04] VITALS: TEMP 98
== END 2023-07-26 03:42 | disposition short-term general hospital (02) ==
LOC: JER 23:30
DX: R10.30 Lower abdominal pain, unspecified (principal); Y07.03 Male partner, perpetrator of maltreatment and neglect
CPT/HCPCS: 99285-25

== ENCOUNTER 2023-09-11 22:19 | Observation (INO) | payer OTHER ==
[2023-09-11 22:36] VITALS: BMI 25.2
[2023-09-11] MEDS ORDERED: LORazepam 2 MG TABLET PO ONE (23:41)
[2023-09-11] MEDS ORDERED: ACETAMINOPHEN 1000 MG/100 ML BAG IVPB ONE (23:41)
[2023-09-12] MEDS ORDERED: LORazepam 1 MG TABLET ONE (00:07)
[2023-09-12] MEDS ORDERED: ACETAMINOPHEN INJECTION 100 ML IVPB ONE ×2 (00:07→07:53)
[2023-09-12 01:11] LABS: BASO % 0.5 % (0-2.0); HEMATOCRIT 24.9 % (32.4-45.2); HEMOGLOBIN 7.7 GM/dL (10.7-15.3); LYMPH % 10.2 % (8-40); MCHC 30.7 g/dl (32.0-36.0); MEAN CELL VOLUME 61.3 fl (80-96); MEAN PLT VOLUME 6.7 fl (7.5-11.1); MONO % 4.9 % (3.8-10.2); NEUT % 84.4 % (42.8-82.8); PLATELET COUNT 590 10^3/uL (134-434); RBC 4.06 M/mm3 (3.60-5.2); RDW 19.1 % (11.6-15.6); WHITE BLOOD COUNT 10.6 K/mm3 (4.0-10.0)
[2023-09-12 01:24] LABS: INR 1.1 (0.83-1.09); PROTHROMBIN TIME (PATIENT) 12.8 SEC (9.7-13.0)
[2023-09-12 01:25] LABS: MCH 18.8 pg (25.7-33.7)
[2023-09-12 01:26] LABS: ACTIVATED PTT 24.9 SECONDS (25.2-36.5)
[2023-09-12 01:33] LABS: COCAINE, UR NEGATIVE (NEGATIVE); OPIATES, URI NEGATIVE (NEGATIVE)
[2023-09-12 01:34] LABS: CHLORIDE 104 mmol/L (98-107); METHADONE, UR NEGATIVE (NEGATIVE); PHENCYCLIDINE,URINE NEGATIVE (NEGATIVE); POTASSIUM 4.2 mmol/L (3.5-5.1); SODIUM 134 mmol/L (136-145); URINE BARBITURATES NEGATIVE (NEGATIVE); URINE BENZODIAZEPINES NEGATIVE (NEGATIVE)
[2023-09-12 01:35] LABS: ALBUMIN 3.3 g/dl (3.4-5.0); ANION GAP 4 mmol/L (4-13); BLOOD UREA NITROGEN 11.2 mg/dL (7-18); CALCIUM 8.8 mg/dL (8.5-10.1); CO2 26 mmol/L (21-32); GLUCOSE,RANDOM 96 mg/dL (74-106)
[2023-09-12 01:39] LABS: CREATININE 0.8 mg/dL (0.55-1.3); SGOT/AST 11 U/L (15-37); SGPT/ALT 10 U/L (13-61); URINE AMPHETAMINES NEGATIVE (NEGATIVE)
[2023-09-12 01:40] LABS: BILIRUBIN,TOTAL 0.2 mg/dL (0.2-1); TOT PROT 7.4 g/dl (6.4-8.2)
[2023-09-12 01:41] LABS: ALK PHOS 62 U/L (45-117)
[2023-09-12 01:59] LABS: URINE APPEARANCE CLEAR; URINE BILIRUBIN NEGATIVE (NEGATIVE); URINE COLOR YELLOW; URINE GLUCOSE (UA) NEGATIVE (NEGATIVE); URINE KETONE NEGATIVE (NEGATIVE)
[2023-09-12 02:00] LABS: URINE LEUK ESTERASE TRACE (NEGATIVE); URINE NITRITE NEGATIVE (NEGATIVE); URINE PROTEIN TRACE (NEGATIVE); URINE UROBILINOGEN 0.2 mg/dL (0.2-1.0)
[2023-09-12 03:56] LABS: ANISOCYTOSIS 1+; MACROCYTOSIS 0
[2023-09-12] MEDS ORDERED: ALBUTEROL SO4 HFA INHALER IH PRN (07:07)
[2023-09-12] MEDS ORDERED: ACETAMINOPHEN 325 MG TABLET (FP) ONE (08:08)
[2023-09-12] MEDS: ACETAMINOPHEN 325 MG TABLET (FP) PO PRN ×2 (08:30→15:44)
[2023-09-12 09:22] LABS: IRON SERUM 10 ug/dL (50-175); TOTAL IRON BINDING CAPACITY 359 ug/dL (250-450)
[2023-09-12] MEDS ORDERED: IRON SUCROSE INJECTION 200 MG in SODIUM CHLORIDE 90 ML IVPB ONE (22:00)
[2023-09-12] MEDS ORDERED: traZODone HCL 50 MG TABLET (FP) PO ONE (23:23)
[2023-09-12] MEDS ORDERED: traZODone HCL 50 MG TABLET (FP) ONE (23:28)
[2023-09-13 05:15] VITALS: RESP 18
[2023-09-13 06:32] LABS: BASO % 1.4 % (0-2.0); EOS % 1.4 % (0-4.5); HEMATOCRIT 26.2 % (32.4-45.2); HEMOGLOBIN 7.6 GM/dL (10.7-15.3); LYMPH % 46.1 % (8-40); MEAN PLT VOLUME 6.5 fl (7.5-11.1); MONO % 9.5 % (3.8-10.2); NEUT % 41.6 % (42.8-82.8); PLATELET COUNT 537 10^3/uL (134-434); RBC 4.16 M/mm3 (3.60-5.2); RDW 19.1 % (11.6-15.6); WHITE BLOOD COUNT 5.6 K/mm3 (4.0-10.0)
[2023-09-13 06:37] LABS: MCH 18.3 pg (25.7-33.7)
[2023-09-13 06:48] LABS: POTASSIUM 4.1 mmol/L (3.5-5.1)
[2023-09-13 06:50] LABS: ALBUMIN 3.2 g/dl (3.4-5.0); BLOOD UREA NITROGEN 10.8 mg/dL (7-18); CALCIUM 8.5 mg/dL (8.5-10.1)
[2023-09-13 06:53] LABS: CREATININE 0.8 mg/dL (0.55-1.3)
[2023-09-13 06:55] LABS: BILIRUBIN,TOTAL 0.4 mg/dL (0.2-1); TOT PROT 7.2 g/dl (6.4-8.2)
[2023-09-13] MEDS ORDERED: ACETAMINOPHEN 325 MG TABLET (FP) ONE (11:54)
[2023-09-13] MEDS: ACETAMINOPHEN 325 MG TABLET (FP) PO PRN (12:18)
[2023-09-13 15:10] VITALS: TEMP 98.1
[2023-09-13] MEDS ORDERED: IRON SUCROSE INJECTION 200 MG in SODIUM CHLORIDE 90 ML IVPB ONE (16:00)
[2023-09-13 17:17] VITALS: PULSE 74
[2023-09-13 17:54] VITALS: BP 129/88
== END 2023-09-13 17:55 | disposition home or self-care (01) ==
LOC: JER 22:19 → JERBED 09-12 04:56
PROVIDERS: ADMIT Family Medicine; ATTEND Family Medicine
PROC: 3E033NZ Introduction of Analgesics, Hypnotics, Sedatives into Peripheral Vein, Percutaneous Approach (ICD-10-PCS; principal; 2023-09-12)
DX: R55 Syncope and collapse (principal); D50.9 Iron deficiency anemia, unspecified; Y04.2XXA Assault by strike against or bumped into by another person, initial encounter; J45.909 Unspecified asthma, uncomplicated; Y93.89 Activity, other specified; Z98.84 Bariatric surgery status; Y92.89 Other specified places as the place of occurrence of the external cause; Z91.010 Allergy to peanuts
CPT/HCPCS: 36415; 70450-TC; 72125-TC; 80053; 80307; 81003; 82728; 83540; 83550; 83735; 84466; 84484; 84703; 85025; 85045; 85610; 85730; 86850; 86900; 86901; 87077; 87086; 93005; 93010; 96374; 96375; 96376; 99285-25; G0378; J1756

== ENCOUNTER 2023-10-26 11:02 | Day surgery (SDC) | payer OTHER ==
[2023-10-26] MEDS: FERRIC CARBOXYMALTOSE 750 MG in SODIUM CHLORIDE 250 ML IVPB ONE (11:39)
[2023-10-26 11:57] VITALS: RESP 18; TEMP 97.9
[2023-10-26 13:01] VITALS: BP 102/64; PULSE 82
== END 2023-10-26 13:01 | disposition home or self-care (01) ==
LOC: FINFUSION 11:02 → FINJECTION 11:02 → FM/S 11:03 → FINJECTION 13:01
PROVIDERS: ATTEND Family Medicine
PROC: 3E033GC Introduction of Other Therapeutic Substance into Peripheral Vein, Percutaneous Approach (ICD-10-PCS; principal; 2023-10-26)
DX: D50.9 Iron deficiency anemia, unspecified (principal)
CPT/HCPCS: 96365; J1439

== ENCOUNTER 2023-11-02 12:19 | Day surgery (SDC) | payer OTHER ==
[2023-11-02] MEDS: FERRIC CARBOXYMALTOSE 750 MG in SODIUM CHLORIDE 250 ML IVPB ONE (12:58)
[2023-11-02 14:37] VITALS: BP 121/72; PULSE 69; RESP 16; TEMP 98.2
== END 2023-11-02 14:38 | disposition home or self-care (01) ==
LOC: FINFUSION 12:19 → FINJECTION 12:19 → FM/S 12:25 → FINJECTION 14:38
PROVIDERS: ATTEND Family Medicine
PROC: 3E033GC Introduction of Other Therapeutic Substance into Peripheral Vein, Percutaneous Approach (ICD-10-PCS; principal; 2023-11-02)
DX: D50.9 Iron deficiency anemia, unspecified (principal)
CPT/HCPCS: 96365; J1439